=== PATIENT | female | born 1940 | race Caucasian/White ===

== ENCOUNTER 2022-12-15 13:50 | Outpatient (REF) | payer OTHER, SELFPAY ==
[2022-12-15 16:29] LABS: MANUAL DIFF FLAG NO
[2022-12-15 16:33] LABS: Basophils Absolute Auto 0.1 X10*3/uL (0.0-0.2); Basophils Percent Auto 0.7 % (0-2); Eosinophils Absolute Auto 0.3 X10*3/uL (0.0-0.4); Eosinophils Percent Auto 4.6 % (0-4); Hematocrit 40.7 % (37.0-47.0); Imm Gran Abs Auto 0.08 X10*3/uL (0.00-0.03); Imm Gran Pct Auto 1.2 % (0.0-0.4); Lymphocytes Absolute Auto 1.5 X10*3/uL (1.2-4.9); Lymphocytes Percent Auto 21.7 % (20-40); Mean Corpuscular HGB Conc 34.4 g/dl (31.0-35.0); Mean Corpuscular Hemoglobin 31.3 pg (27.0-33.0); Mean Corpuscular Volume 91.1 fL (80.0-98.0); Mean Platelet Volume 9.3 fL (9.4-12.3); Monocytes Absolute Auto 0.8 X10*3/uL (0.1-1.2); Monocytes Percent Auto 12.5 % (2-11); Neutrophils Percent Auto 59.3 % (45-73); Platelet Count 301 X10*3/uL (160-400); Red Blood Count 4.47 X10*6/uL (4.20-5.50); Red Cell Distribution Width 12.9 % (11.0-16.0); White Blood Count 6.7 X10*3/uL (4.8-10.8)
[2022-12-15 16:43] LABS: Estimated Average Glucose 146 mg/dL; Hemoglobin A1c % 6.7 %
[2022-12-15 16:54] LABS: Alanine Aminotransferase 26 U/L (0-31); Albumin Level 4.1 g/dL (3.5-5.0); Alkaline Phosphatase 76 U/L (39-117); Anion Gap 12 (12-20); Aspartate Amino Transferase 28 U/L (5-31); Bilirubin Total 0.4 mg/dL (0.0-1.0); Blood Urea Nitrogen 10 mg/dL (9-16); Calcium 9.5 mg/dL (8.4-10.2); Carbon Dioxide 29 mmol/L (22-29); Chloride 98 mmol/L (96-108); Estimated Glomerular Filt Rate > 60; Glucose Random 130 mg/dL (60-115); Potassium 4.5 mmol/L (3.3-5.1); Sodium 134 mmol/L (135-145); Total Protein 6.8 g/dL (6.5-8.0)
[2022-12-15 17:09] LABS: TSH reflex Free T4 1.47 uIU/mL (0.32-4.0)
[2022-12-15 18:11] LABS: Creatinine Urine 15.02 mg/dL; Microalbumin Urine < 5.0 mg/L
[2022-12-16 17:13] LABS: LDL Cholesterol Direct 120 mg/dL (<100)
== END 2022-12-15 13:51 | disposition home or self-care (01) ==
LOC: HO.HMGCLDS 13:50
PROVIDERS: PCP Internal Medicine; Visit Provider Internal Medicine
DX: E03.9 Hypothyroidism, unspecified (principal); E11.40 Type 2 diabetes mellitus with diabetic neuropathy, unspecified; E66.01 Morbid (severe) obesity due to excess calories; E78.9 Disorder of lipoprotein metabolism, unspecified; I10 Essential (primary) hypertension; Z76.89 Persons encountering health services in other specified circumstances; Z99.89 Dependence on other enabling machines and devices
CPT/HCPCS: 36415; 80053; 82043; 83036; 83721; 84443; 85025

== ENCOUNTER 2023-03-08 10:00 | Outpatient (RCR) | payer OTHER, SELFPAY ==
--- NOTE | 2023-02-15 13:44 | MHC.PT.EP ---
[facility] [place] [facility] [place] [facility] [place] Office [address] [phone] F: [phone] F: [phone] F: [phone] F: [phone] Physical Therapy Plan of Care Date of Evaluation: Date of Surgery: n/a Diagnosis: B leg weakness Assessment: Patient is a 83 year old female presenting to PT with complaints B leg weakness. Pt reports onset of pain began 10 years ago due to insidious onset. She presents today with impairments in LE strength, balance, gait mechanics, endurance. Pt's current occupation is none, with baseline physical activities including ambulating, ADLs. Pt expresses prison goal of improving strength, and is motivated to work towards this in PT. Clinical presentation today is most consistent with signs and sx associated with LE weakness and pt will benefit from skilled PT 1 week x 4 weeks to address the following problems and impairments noted upon evaluation: LE strength, balance, gait mechanics, endurance. These problems limit the patient with the following functional activities: ambulating, ADLs. The prescribed treatment plan of care is medically necessary. Co-morbidities of DM, HTN were identified and taken into considerations of plan of care. Pt was educated on HEP, role of PT, prognosis, POC. Frequency and Duration: The patient will be seen 1 x week x 4 weeks Short Term Goals: Pt will demonstrate improved LE MMT strength to at least 4/5 in 2 weeks for improved strength. Pt will demonstrate ability to stand NBOS with min sway in 2 weeks. Pt will be able to perform STS without UE support in 2 weeks. Senior Care Goals: Pt will demonstrate improved LEFI score by 9 points in 4 weeks for improved functional mobility. Pt will demonstrate ability to perform 5 STS during 30 sec chair stand test in 4 weeks for improved endurance. Treatment Plan: Modalities to reduce pain, spasms and effusion. Manual therapy to restore motion and function. Therapeutic exercise to improve strength and flexibility. Neuromuscular re-education for posture and balance. Therapeutic activities to return to functional activities of daily living. Electronically signed by: Martina Moise, PT, DPT, ATC Please sign and return to therapist. Thank you for your referral.
--- NOTE | 2023-03-08 10:51 | MHC.PT.DC ---
[facility] Office [place] Office [place] Office [address] Dara Rodriguez [address] [phone] F: [phone] F: [phone] F: [phone] F: [phone] Physical Therapy Discharge Report Diagnosis: B leg weakness Date of Surgery: n/a Date of Evaluation: 02/15/23 Date of Discharge: 03/08/23 Treatments to Date: 4 Cancellations to Date: 0 No Shows to Date: 0 Discharge Status: Improved Function Independent with HEP Discharge Summary: 03/08/2023: Pt has made some gains since beginning PT and has been working on her HEP at home. We discussed that her arthritis pain will be something she needs to constantly manage so continuing her HEP will be beneficial for her. At this point we have maximized benefits of PT and skilled PT is no longer indicated at this time. Pt in agreement with d/c today. Electronically signed by: Martina Moise, PT, DPT, ATC Please sign and return to therapist. Thank you for your referral.
== END 2023-03-08 10:55 | disposition home or self-care (01) ==
LOC: HO.PTCHIC 10:00
PROVIDERS: PCP Internal Medicine; Visit Provider Internal Medicine
DX: R29.898 Other symptoms and signs involving the musculoskeletal system (principal)
CPT/HCPCS: 97110; 97161; 97530

== ENCOUNTER → 2023-04-18 10:38 | Outpatient (BNVA) | payer OTHER, SELFPAY | PROVIDERS: PCP Internal Medicine; Visit Provider Physical Medicine & Rehabilitation ==

== ENCOUNTER 2023-04-25 11:26 | Outpatient (AMB) | payer OTHER, SELFPAY ==
[2023-04-25 11:54] VITALS: BMI 35.4
--- NOTE | 2023-04-25 11:54 | MHC.OFFVIS ---
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 States both hands are as bad. States symptoms started more than 3 years ago and has worsen. States she has had injections for CTS, last injection was about 1 yr ago. Patient reports injection last about 2 months. She also wears braces at night time. Patient would like to discuss injections vs surgery. No EMG done for her upper extremity. Senior Process Engineer Required: Yes Senior Process Engineer Name: Sarah Quintanilla Allergies No Known Allergies Allergy (Verified 03/09/23 12:29) Medication List - Last Reconciled 04/25/23 by Diana Hagen MD acetaminophen ER (Tylenol 8 Hour) 650 mg PO Q12H amlodipine 5 mg PO DAILY aspirin 81 mg PO DAILY blood sugar diagnostic ([employer] Verio test strips) Once a day blood-glucose meter ([employer] Verio Flex Meter) Once a day calcium citrate-vitamin D3 315 mg-5 mcg (200 unit) 1 tab PO DAILY denosumab (Prolia) 60 mg subcut [id number] diclofenac sodium 1% (Arthritis Pain (diclofenac)) 2 grams topical QID 30 days ezetimibe 10 mg PO DAILY lancets ([employer] Delica Plus Lancet) qd levothyroxine 50 mcg PO DAILY losartan 100 mg PO DAILY metoprolol succinate ER 25 mg PO DAILY omeprazole magnesium 20 mg PO DAILY pregabalin (Lyrica) 50 mg PO DAILY pregabalin 50 mg PO TID 30 days sitagliptin phosphate (Januvia) 50 mg PO DAILY sitagliptin phosphate (Januvia) 25 mg PO DAILY HPI HPI Comments History of Present Illness Details History of DM PN, follows with [facility]. Referred by PCP. Maintained on Lyrica for PN. Reports no sensation on both legs, and also mentions hip and back pain. 3 years of hand pain and numbness, getting worse. 1st-3rd digit numbness, bilateral. drops things/ weakness. Also has some neck pain. Describes nerve pain similar to her leg neuropathy. Blood sugars around 140s. HbA1c around 7 per patient. On Januvia. Treatment done so far: Tylenol, Lyrica TID therapy - none yet uses wrist splint at night injection - Dr. Ocampo bilateral CTS, 2 years ago, worked 2 months only No EMG on BUE yet. surgery - none for CTS [facility] Social History Housing: Apartment Patient Tobacco Use Status: Never used Tobacco e-Cigarette/Vaping Use: Never Used Current occupational status: unemployed Cognitive needs: No Hearing needs: No Vision needs: Yes Review of Systems Const All systems reviewed & are unremarkable except as noted in HPI and below Physical Exam Vital Signs: BMI result Body Mass Index 35.4 Constitutional: Patient appears to be in no acute distress, well nourished and well developed. MSK: Inspection reveals appropriate head and neck positioning. [No] pain with palpation over the neck musculature. Cervical ROM was [full]. Spurling's sign [negative]. [Bilateral] shoulder ROM [WNL]. [No] ligamentous laxity or crepitance. [No] increased effusion. Hawkin's test is [negative]. [No] joint effusion noted. [No] deformity noted. [No intrinsic hand weakness noted]. Patient points to APB as thinning. Liliam test [negative]. Carpal compression test positive bilateral. Tinel sign positive bilateral wrist. Strength is [5/5 in all muscle groups tested]. No increased tone noted. Neurological: Neurologic examination of the upper and lower extremities was nonfocal with intact sensation, muscle stretch reflexes and without focal motor deficits [ ]. Rey?s [negative bilaterally]. Results Reviewed Results Reviewed: I reviewed records from the following: [facility] PCP Assessment & Plan Assessment & Plan (1) Carpal tunnel syndrome: Code(s): G56.00 - Carpal tunnel syndrome, unspecified upper limb (2) Diabetic neuropathy: Code(s): E11.40 - Type 2 diabetes mellitus with diabetic neuropathy, unspecified Plan Chronic worsening symptoms for Carpal Tunnel Syndrome bilateral. With history of diabetic neuropathy affecting lower extremities. Continue to wear wrist splints at specially at night. We will schedule for EMG bilateral upper extremities. Past injections have not worked for long time and more painful. She may consider surgery after the EMG is done. Assessment and plan discussed with patent, and patient was agreeable. All questions were answered thoroughly. Follow-up after EMG. She would also like another appointment to evaluate for left knee pain. Orders: Orders NE nerve conduction velocity Today E11.40 - Type 2 diabetes mellitus with diabetic neuropathy, unspecified, G56.00 - Carpal tunnel syndrome, unspecified upper limb Coding Level of Care Code New Pt Level 4 (05549) Diagnoses Carpal tunnel syndrome G56.00 Diabetic neuropathy E11.40
== END 2023-04-25 12:29 | disposition home or self-care (01) ==
PROVIDERS: PCP Internal Medicine; Visit Provider Physical Medicine & Rehabilitation
DX: G56.00 Carpal tunnel syndrome, unspecified upper limb (principal); E11.40 Type 2 diabetes mellitus with diabetic neuropathy, unspecified
CPT/HCPCS: 99204

== ENCOUNTER → 2023-04-25 11:26 | Outpatient (BNVA) | payer OTHER, SELFPAY | PROVIDERS: PCP Internal Medicine; Visit Provider Physical Medicine & Rehabilitation | DX: G56.00 Carpal tunnel syndrome, unspecified upper limb (principal); E11.40 Type 2 diabetes mellitus with diabetic neuropathy, unspecified | CPT/HCPCS: 99202 ==

== ENCOUNTER 2023-05-02 13:10 | Outpatient (REF) | payer OTHER, SELFPAY ==
--- NOTE | 2023-05-02 13:14 | EMG_ITS ---
Chief complaint: Bilateral hand numbness, I saw patient in Orthopedics, see full note Reason for referral: Evaluate for Carpal Tunnel Syndrome versus neuropathy Procedure done: Bilateral upper extremities NCS/EMG Precautions and/or limitations: None The limb temperature was monitored continuously and remained between 32-36 degrees C during the performance of the NCS. Nerve Conduction Studies Anti Sensory Summary Table ?Stim Site NR Onset (ms) Norm Onset (ms) Peak (ms) Norm Peak (ms) O-P Amp (?V) Norm O-P Amp Site1 Site2 Delta-0 (ms) Dist (cm) Gunnar (m/s) Norm Gunnar (m/s) Left Median Anti Sensory (2nd Digit) Wrist NR <3.6 >10 Wrist 2nd Digit 14.0 Right Median Anti Sensory (2nd Digit) Wrist NR <3.6 >10 Wrist 2nd Digit 14.0 Right Radial Anti Sensory (Thumb) Forearm ? 1.6 2.7 <3.1 29.5 Forearm Thumb 1.6 0.0 Left Ulnar Anti Sensory (5th Digit) Wrist ? 2.9 3.7 <3.7 18.9 >15.0 Wrist 5th Digit 2.9 14.0 48 Right Ulnar Anti Sensory (5th Digit) Wrist ? 2.3 3.5 <3.7 13.7 >15.0 Wrist 5th Digit 2.3 14.0 61 Motor Summary Table ?Stim Site NR Onset (ms) Norm Onset (ms) O-P Amp (mV) Norm O-P Amp iAmp (mV) Amp (1st) (%) Site1 Site2 Delta-0 (ms) Dist (cm) Gunnar (m/s) Norm Gunnar (m/s) Left Median Motor (Abd Poll Brev) Wrist ? 3.4 <3.9 0.4 >4.5 0.3 100.0 Elbow Wrist 0.0 >45 Elbow NR Right Median Motor (Abd Poll Brev) Wrist ? 4.7 <3.9 0.5 >4.5 0.6 100.0 Elbow Wrist 0.0 >45 Elbow NR Left Ulnar Motor (Abd Dig Minimi) Wrist ? 3.4 <3.0 3.9 >5 5.8 100.0 B Elbow Wrist 3.3 16.5 50 >45 B Elbow ? 6.7 3.3 5.0 84.6 A Elbow B Elbow 1.6 10.0 62 >45 A Elbow ? 8.3 3.2 4.6 82.1 Right Ulnar Motor (Abd Dig Minimi) Wrist ? 3.0 <3.0 6.1 >5 8.7 100.0 B Elbow Wrist 3.4 18.0 53 >45 B Elbow ? 6.4 5.7 8.2 93.4 A Elbow B Elbow 1.3 10.0 77 >45 A Elbow ? 7.7 5.7 8.2 93.4 EMG ?Side Muscle Nerve Root Ins Act Fibs Psw Amp Dur Poly Recrt Int Pat Comment Right 1stDorInt Ulnar C8-T1 Nml Nml Nml Nml Nml 0 Nml Complete Right FlexCarRad Median C6-7 Nml Nml Nml Nml Nml 0 Nml Complete Right Biceps Musculocut C5-6 Nml Nml Nml Nml Nml 0 Nml Complete Right Triceps Radial C6-7-8 Nml Nml Nml Nml Nml 0 Nml Complete Right Deltoid Axillary C5-6 Nml Nml Nml Nml Nml 0 Nml Complete Left 1stDorInt Ulnar C8-T1 Nml Nml Nml Nml Nml 0 Nml Complete Left FlexCarRad Median C6-7 Nml Nml Nml Nml Nml 0 Nml Complete Left Biceps Musculocut C5-6 Nml Nml Nml Nml Nml 0 Nml Complete Left Triceps Radial C6-7-8 Nml Nml Nml Nml Nml 0 Nml Complete Left Deltoid Axillary C5-6 Nml Nml Nml Nml Nml 0 Nml Complete FINDINGS: Bilateral median motor nerves showed small amplitude distally and absent proximally. Left ulnar motor nerve showed prolonged distal latency, small amplitude and normal conduction velocity. Bilateral median sensory nerves showed absent response. All other nerves tested were within normal. Concentric needle EMG was performed in selected muscles of the bilateral upper extremities. Study did not reveal signs of electric abnormalities as shown in the table below. IMPRESSION: 1. This is an abnormal study. 2. There is electrodiagnostic evidence for bilateral moderate-severe median neuropathy at the wrists, consistent with carpal tunnel syndrome. 3. There is no electrodiagnostic evidence for brachial plexopathy, or cervical radiculopathy. CLINICAL COMMENT: Possible neuropathy affecting left ulnar nerve distally but without conduction block across the elbow. Patient has history of diabetic neuropathy Thank you for your kind referral.. Diana Hagen MD, [place] Board Certified, [place] Board of [employer] and Rehabilitation (ABPMR) Board Certified, [place] Board of Electrodiagnostic Medicine (ABEM) MTDD
== END 2023-05-02 13:11 | disposition home or self-care (01) ==
LOC: HO.NEURO 13:10
PROVIDERS: PCP Internal Medicine; Visit Provider Physical Medicine & Rehabilitation
DX: G56.00 Carpal tunnel syndrome, unspecified upper limb (principal); E11.40 Type 2 diabetes mellitus with diabetic neuropathy, unspecified
CPT/HCPCS: 95886; 95911

== ENCOUNTER 2023-05-16 10:42 | Outpatient (REF) | payer OTHER, SELFPAY ==
--- NOTE | ~2023-05-16 | XR_ITS ---
EXAMINATION: XR KNEE, LEFT CLINICAL INFORMATION: Primary osteoarthritis. Left knee pain. COMPARISON: None available. TECHNIQUE: Three views of the left knee. FINDINGS: There is moderate loss of tricompartment joint space with periarticular spurring along the medial and patellofemoral compartments. No acute fracture, dislocation or loose body seen. No joint effusion. The soft tissues are normal. XR/XR knee LT 3V IMPRESSION: Moderate degenerative changes tricompartment left knee. No visible acute fracture or dislocation seen.
== END 2023-05-16 10:43 | disposition home or self-care (01) ==
LOC: HO.HOSX 10:42
PROVIDERS: PCP Internal Medicine; Visit Provider Physical Medicine & Rehabilitation
DX: M17.12 Unilateral primary osteoarthritis, left knee (principal)
CPT/HCPCS: 73562

== ENCOUNTER 2023-05-16 10:42 | Outpatient (AMB) | payer OTHER, SELFPAY ==
--- NOTE | 2023-05-16 10:46 | A.OFFVIS_ITS ---
Intake Vital Signs 05/16/23 10:51 Height 5 ft 3 in Weight 200 lb BMI 35.4 Intake Visit Reasons: New prob- B/L knee pain and emg review Intake Note: Leona is a 83 year old right hand dominant female who presents today for her EMG review for her bilateral hand pain. Hx of injections with 2-3 months of relief. Patient is also having complaints of pain on both of her knees. She states that her pain gets so pain that she feels her feet numb. Patient reports that her left knee is worse than the right. She states that her pain is worse when walkin g. Allergies No Known Allergies Allergy (Verified 05/16/23 10:51) Medication List - Last Reconciled 05/16/23 by Diana Hagen MD acetaminophen ER (Tylenol 8 Hour) 650 mg PO Q12H amlodipine 5 mg PO DAILY aspirin 81 mg PO DAILY blood sugar diagnostic ([employer] Verio test strips) Once a day blood-glucose meter ([employer] Verio Flex Meter) Once a day calcium citrate-vitamin D3 315 mg-5 mcg (200 unit) 1 tab PO DAILY denosumab (Prolia) 60 mg subcut [id number] diclofenac sodium 1% (Arthritis Pain (diclofenac)) 2 grams topical QID 30 days ezetimibe 10 mg PO DAILY lancets ([email or web address] Delica Plus Lancet) qd levothyroxine 50 mcg PO DAILY losartan 100 mg PO DAILY metoprolol succinate ER 25 mg PO DAILY omeprazole magnesium 20 mg PO DAILY pregabalin (Lyrica) 50 mg PO DAILY pregabalin 50 mg PO TID 30 days sitagliptin phosphate (Januvia) 50 mg PO DAILY sitagliptin phosphate (Januvia) 25 mg PO DAILY HPI HPI Comments History of Present Illness Details History of DM PN, follows with [facility]. Initially referred by PCP for hand pain. Maintained on Lyrica for PN. Reports no sensation on both legs, and also mentions hip and back pain. 3 years of hand pain and numbness, getting worse. 1st-3rd digit numbness, bilateral. drops things/ weakness. Also has some neck pain. Describes nerve pain similar to her leg neuropathy. We did EMG, results below. Blood sugars around [140s]. HbA1c around 7 per patient. On Januvia. injection - Dr. Ocampo bilateral CTS, 2 years ago, worked 2 months only. She tells me today that she had injection for both wrists 4 months ago pain. She is here today also for left knee pain. She also talks about lower back pain that radiates into left knee. No recent imaging of knees. She tells me that she had injection for both knees 5 months ago. [facility] Medical History (Updated 05/16/23 @ 11:03 by Diana Hagen MD) Left knee DJD Social History Housing: Apartment Patient Tobacco Use Status: Never used Tobacco e-Cigarette/Vaping Use: Never Used Current occupational status: unemployed Cognitive needs: No Hearing needs: No Vision needs: Yes Physical Exam Vital Signs: BMI result Body Mass Index 35.4 Constitutional: Patient appears to be in no acute distress, well nourished and well developed. MSK: Uses walker. Left knee is not red or warm or swollen. There is tenderness more on left lateral joint line. Positive pain with both varus and valgus stress. No sense of instability. No calf tenderness. Results Reviewed Results Reviewed: Left knee x-ray done today, independently reviewed, films showed decreased joint space especially on lateral and infrapatellar. Spurs noted. EMG done by me 05/02/23 BUE: IMPRESSION: 1. This is an abnormal study. 2. There is electrodiagnostic evidence for bilateral moderate-severe median n europathy at the wrists, consistent with carpal tunnel syndrome. 3. There is no electrodiagnostic evidence for brachial plexopathy, or cervical radiculopathy. CLINICAL COMMENT: Possible neuropathy affecting left ulnar nerve distally but without conduction block across the elbow. Patient has history of diabetic neuropathy I reviewed records from the following: [facility] PCP Assessment & Plan Assessment & Plan (1) Left knee DJD: Code(s): M17.12 - Unilateral primary osteoarthritis, left knee Plan: Chronic left knee pain. X-rays done today which shows decreased joint spaces. (2) Carpal tunnel syndrome: Code(s): G56.00 - Carpal tunnel syndrome, unspecified upper limb Plan: At this point she is not considering surgery. She says that she has poorly controlled diabetes and does not heal well from wounds. But she tells me that steroid injections do not usually affect her blood sugars. Her last Carpal Tunnel Syndrome injection was 4 months ago. I discussed that I am conservative in terms of Carpal Tunnel Syndrome injections and would only do it every 6 months. Plan After further discussion, we decided that it is best she continues to follow-up with her technical sales support specialist Dr. Ocampo for Carpal Tunnel Syndrome any injections. She scheduled to see Dr. Ocampo at the end of the month. She would like to be further evaluated for lower back pain. We will schedule another follow-up and possibly do imaging at that time. Assessment and plan discussed with patent, and patient was agreeable. All questions were answered thoroughly. Orders: Orders XR knee LT 3V Today M17.12 - Unilateral primary osteoarthritis, left knee Coding Level of Care Code Est Pt Level 4 (52305) Diagnoses Left knee DJD M17.12 Carpal tunnel syndrome G56.00
[2023-05-16 10:51] VITALS: BMI 35.4
== END 2023-05-16 12:38 | disposition home or self-care (01) ==
PROVIDERS: PCP Internal Medicine; Visit Provider Physical Medicine & Rehabilitation
DX: M17.12 Unilateral primary osteoarthritis, left knee (principal); G56.00 Carpal tunnel syndrome, unspecified upper limb
CPT/HCPCS: 99213

== ENCOUNTER 2023-06-08 11:36 | Outpatient (AMB) | payer OTHER, SELFPAY ==
[2023-06-08 11:38] VITALS: BP 162/78; PULSE 76; O2SAT 97; BMI 34.9
--- NOTE | 2023-06-08 11:38 | MHC.PC.OV ---
Vital Signs 06/08/23 11:38 06/08/23 12:06 Height 5 ft 3 in Weight 197 lb BMI 34.9 BP 162/78 H 140/80 H Blood Pressure Location Lt brachial Position Sitting Pulse 76 Pulse Source Pulse Oximeter Pulse Oximetry (%) 97 Oxygen Delivery Method Room Air Intake Visit Reasons: 3 month f/u Allergies No Known Allergies Allergy (Verified 06/08/23 11:38) Medication List - Last Reconciled 06/08/23 by Debbie Begum MD acetaminophen ER (Tylenol 8 Hour) 650 mg PO Q12H amlodipine 5 mg PO DAILY aspirin 81 mg PO DAILY blood sugar diagnostic ([employer] Verio test strips) Once a day blood-glucose meter ([employer] Verio Flex Meter) Once a day calcium citrate-vitamin D3 315 mg-5 mcg (200 unit) 1 tab PO DAILY denosumab (Prolia) 60 mg subcut [id number] diclofenac sodium 1% (Arthritis Pain (diclofenac)) 2 grams topical QID 30 days ezetimibe 10 mg PO DAILY lancets ([employer] Delica Plus Lancet) qd levothyroxine 50 mcg PO DAILY losartan 100 mg PO DAILY metoprolol succinate ER 25 mg PO DAILY omeprazole magnesium 20 mg PO DAILY pregabalin 50 mg PO TID 30 days pregabalin (Lyrica) 50 mg PO DAILY sitagliptin phosphate (Januvia) 50 mg PO DAILY sitagliptin phosphate (Januvia) 25 mg PO DAILY Tobacco use date assessed: 06/08/23 Fall risk assessment: No Falls in past year Last assessed Fall Risk: 06/08/23 Dental Screening Dental Screen Date: 06/08/23 Did you have a dental visit in the last 12 months?: Yes Did you have a dental problem in the last 6 months where you did not have access to dental care?: No Was dental information given to patient?: Patient has dentist HPI 3 month f/u HPI Details Patient is 83-year-old female who speaks only Austrian came in today for her regular follow-up appointment Patient speaks only Austrian information retrieved with that of a staff member Patient is morbidly obese with diabetic neuropathy using walker to ambulate. She is on Lyrica 50 mg t.i.d., because of diabetic neuropathy, she continued to complain of numbness and pain in her feet Diabetes mellitus continue Januvia hemoglobin A1c is well controlled, patient was supposed to have labs done before this visit but she forgot she will have it done after the visit Patient is no longer having mammogram No longer having colonoscopies no longer seeing OBGYN Arthritic pain managed with diclofenac sodium arthritic rub. She also have a hypothyroidism and is taking levothyroxine 50 mcg , TSH within normal limit Blood pressure is slightly elevated today: Continue losartan 50 mg patient is tolerating medication she is also on metoprolol 25 mg daily. Lipid disorder: Managed with Zetia 10 mg and diet GERD is stable with omeprazole 20 mg daily Patient sees Dr. Ocampo for Prolia injection every 3 month [facility] Medical History Left knee DJD Social History Housing: Apartment Patient Tobacco Use Status: Never used Tobacco e-Cigarette/Vaping Use: Never Used Current occupational status: unemployed Cognitive needs: No Hearing needs: No Vision needs: Yes Questionnaire Thrive Questionnaire Date Thrive assessed: 12/15/22 AUDIT C Alcohol Use Questionnaire (AUDIT-C) 1. How often do you have a drink containing alcohol?: Never 3. How often do you have six or more drinks on one occasion?: Never Total Score: 0 SAMI-7 AMB Questionnaire SAMI-7 Date ASMI - 7 assessed: 12/15/22 Source: Developed by Drs. Gm Shaikh, Lolita Alba, Kareem Holguin and colleagues, with an educational neela from [employer]. Review of Systems Const Denies chills and Denies fever(s) ENT Denies epistaxis and Denies nasal discharge Card Denies chest pain Resp Denies chest congestion, Denies cough and Denies hemoptysis GI Denies diarrhea and Denies nausea Skin/Breast Denies rash Neuro Reports no additional complaints Psych Reports no additional complaints Endo Reports no additional complaints Physical exam (Primary Care) Vital Signs: Last Vital Signs Pulse 76 06/08/23 11:38 BP 162/78 H 06/08/23 11:38 Pulse Ox 97 06/08/23 11:38 Oxygen Delivery Method Room Air 06/08/23 11:38 BMI result Body Mass Index 34.9 Tobacco/Smoking Status: Tobacco use Status Tobacco use date assessed 06/08/23 06/08/23 11:38 Patient Tobacco Use Status Never used Tobacco 06/08/23 11:38 e-Cigarette/Vaping Use Never Used 06/08/23 11:38 Thrive Assessment: Date of Thrive Assessment Date Thrive assessed 12/15/22 06/08/23 11:38 Const General: cooperative, comfortable and no acute distress Orientation/consciousness: patient oriented x3 HENMT Head: Yes normocephalic Eyes General: appearance normal, both eyes and all related structures Neck Neck: Yes supple Resp Effort & Inspection: normal respiratory effort, no cough and no stridor Cardio Rhythm: regular rhythm Heart sounds: S1 normal heart sound present and S2 normal heart sound present Skin General skin exam: turgor normal Neuro General: patient oriented x3, tone normal and moves all extremities Extrem Right lower extremity: no edema Left lower extremity: no edema Assessment and Plan Assessment & Plan (1) Diabetes mellitus: Code(s): E11.9 - Type 2 diabetes mellitus without complications Qualifiers: Diabetes mellitus complication detail: with polyneuropathy Diabetes mellitus complication status: with neurologic complications Diabetes mellitus ocean transportation intermediary insulin use: without longterm use Diabetes mellitus type: type 2 Qualified Code(s): E11.42 - Type 2 diabetes mellitus with diabetic polyneuropathy (2) Diabetic neuropathy: Code(s): E11.40 - Type 2 diabetes mellitus with diabetic neuropathy, unspecified Qualifiers: Diabetes mellitus complication detail: diabetic polyneuropathy Diabetes mellitus type: type 2 Qualified Code(s): E11.42 - Type 2 diabetes mellitus with diabetic polyneuropathy (3) Hypertension, essential: Code(s): I10 - Essential (primary) hypertension (4) Lipid disorder: Code(s): E78.9 - Disorder of lipoprotein metabolism, unspecified (5) Hypothyroidism: Code(s): E03.9 - Hypothyroidism, unspecified Qualifiers: Hypothyroidism type: unspecified Qualified Code(s): E03.9 - Hypothyroidism, unspecified (6) Morbid obesity: Code(s): E66.01 - Morbid (severe) obesity due to excess calories (7) Bilateral leg weakness: Code(s): R29.898 - Other symptoms and signs involving the musculoskeletal system (8) Uses roller walker: Code(s): Z99.89 - Dependence on other enabling machines and devices Plan Patient is 83-year-old female who speaks only Austrian came in today for her regular follow-up appointment Patient speaks only Austrian information retrieved with that of a staff member Patient is morbidly obese with diabetic neuropathy using walker to ambulate. She is on Lyrica 50 mg t.i.d., because of diabetic neuropathy, she continued to complain of numbness and pain in her feet Diabetes mellitus continue Januvia hemoglobin A1c is well controlled, patient was supposed to have labs done before this visit but she forgot she will have it done after the visit Patient is no longer having mammogram No longer having colonoscopies no longer seeing OBGYN Arthritic pain managed with diclofenac sodium arthritic rub. She also have a hypothyroidism and is taking levothyroxine 50 mcg , TSH within normal limit Blood pressure is slightly elevated today: Continue losartan 50 mg patient is tolerating medication she is also on metoprolol 25 mg daily. Lipid disorder: Managed with Zetia 10 mg and diet GERD is stable with omeprazole 20 mg daily Patient sees Dr. Ocampo for Prolia injection every 3 month Orders: Orders Complete Blood Count Auto Diff 3 Months E03.9 - Hypothyroidism, unspecified, E11.40 - Type 2 diabetes mellitus with diabetic neuropathy, unspecified, E11.9 - Type 2 diabetes mellitus without complications, E66.01 - Morbid (severe) obesity due to excess calories, E78.9 - Disorder of lipoprotein metabolism, unspecified, I10 - Essential (primary) hypertension, R29.898 - Other symptoms and signs involving the musculoskeletal system Comprehensive Met. Panel 3 Months E03.9 - Hypothyroidism, unspecified, E11.40 - Type 2 diabetes mellitus with diabetic neuropathy, unspecified, E11.9 - Type 2 diabetes mellitus without complications, E66.01 - Morbid (severe) obesity due to excess calories, E78.9 - Disorder of lipoprotein metabolism, unspecified, I10 - Essential (primary) hypertension, R29.898 - Other symptoms and signs involving the musculoskeletal system TSH reflex Free T4 3 Months E03.9 - Hypothyroidism, unspecified Hemoglobin A1c 3 Months E03.9 - Hypothyroidism, unspecified, E11.40 - Type 2 diabetes mellitus with diabetic neuropathy, unspecified, E11.9 - Type 2 diabetes mellitus without complications, E66.01 - Morbid (severe) obesity due to excess calories, E78.9 - Disorder of lipoprotein metabolism, unspecified, I10 - Essential (primary) hypertension, R29.898 - Other symptoms and signs involving the musculoskeletal system Microalbumin, Random (w Creat) 3 Months E03.9 - Hypothyroidism, unspecified, E11.40 - Type 2 diabetes mellitus with diabetic neuropathy, unspecified, E11.9 - Type 2 diabetes mellitus without complications, E66.01 - Morbid (severe) obesity due to excess calories, E78.9 - Disorder of lipoprotein metabolism, unspecified, I10 - Essential (primary) hypertension, R29.898 - Other symptoms and signs involving the musculoskeletal system Referrals Dermatology Referral Z12.83 - Encounter for screening for malignant neoplasm of skin Medications: New losartan 100 mg PO DAILY 90 tabs 1RF pregabalin (Lyrica) 50 mg PO DAILY 90 caps 0RF aspirin 81 mg PO DAILY 90 caps 3RF Changed From pregabalin (Lyrica) 50 mg PO DAILY 90 caps 0RF To pregabalin (Lyrica) 50 mg PO Q8H 90 days 270 caps 0RF Refilled ezetimibe 10 mg PO DAILY 90 tabs 0RF pregabalin 50 mg PO TID 30 days 90 caps 0RF levothyroxine 50 mcg PO DAILY 90 tabs 1RF Coding Level of Care Code Est Pt Level 4 (09357) Diagnoses Type 2 diabetes mellitus with diabetic polyneuropathy, without long-term current use of insulin E11.42 Diabetes mellitus complication detail: with polyneuropathy Diabetes mellitus complication status: with neurologic complications Diabetes mellitus longterm insulin use: without ocean transportation intermediary use Diabetes mellitus type: type 2 Diabetic polyneuropathy associated with type 2 diabetes mellitus E11.42 Diabetes mellitus complication detail: diabetic polyneuropathy Diabetes mellitus type: type 2 Hypertension, essential I10 Lipid disorder E78.9 Hypothyroidism, unspecified type E03.9 Hypothyroidism type: unspecified Morbid obesity E66.01 Bilateral leg weakness R29.898 Uses roller walker Z99.89
[2023-06-08 12:06] VITALS: BP 140/80
== END 2023-06-08 12:05 | disposition home or self-care (01) ==
PROVIDERS: PCP Internal Medicine; Visit Provider Internal Medicine
DX: E11.42 Type 2 diabetes mellitus with diabetic polyneuropathy (principal); E66.01 Morbid (severe) obesity due to excess calories; Z68.34 Body mass index [BMI] 34.0-34.9, adult; I10 Essential (primary) hypertension; E78.9 Disorder of lipoprotein metabolism, unspecified; E03.9 Hypothyroidism, unspecified; R29.898 Other symptoms and signs involving the musculoskeletal system; Z99.89 Dependence on other enabling machines and devices
CPT/HCPCS: 99214

== ENCOUNTER 2023-06-08 12:06 | Outpatient (REF) | payer OTHER, SELFPAY ==
[2023-06-08 13:30] LABS: Estimated Average Glucose 154 mg/dL
[2023-06-08 13:54] LABS: Alanine Aminotransferase 33 U/L (0-31); Albumin Level 4.3 g/dL (3.5-5.0); Alkaline Phosphatase 65 U/L (39-117); Anion Gap 15 (12-20); Aspartate Amino Transferase 36 U/L (5-31); Bilirubin Total 0.5 mg/dL (0.0-1.0); Blood Urea Nitrogen 19 mg/dL (9-16); Calcium 9.5 mg/dL (8.4-10.2); Carbon Dioxide 23 mmol/L (22-29); Chloride 99 mmol/L (96-108); Estimated Glomerular Filt Rate > 60; Glucose Random 119 mg/dL (60-115); Potassium 4.3 mmol/L (3.3-5.1); Sodium 133 mmol/L (135-145); Total Protein 7.3 g/dL (6.5-8.0)
== END 2023-06-08 12:07 | disposition home or self-care (01) ==
LOC: HO.HMGCLDS 12:06
PROVIDERS: PCP Internal Medicine; Visit Provider Internal Medicine
DX: E11.40 Type 2 diabetes mellitus with diabetic neuropathy, unspecified (principal); I10 Essential (primary) hypertension; E78.9 Disorder of lipoprotein metabolism, unspecified; E03.9 Hypothyroidism, unspecified
CPT/HCPCS: 36415; 80053; 83036

== ENCOUNTER 2023-07-18 11:11 | Outpatient (REF) | payer OTHER, SELFPAY ==
--- NOTE | ~2023-07-18 | XR_ITS ---
EXAMINATION: XR HIP, LEFT CLINICAL INFORMATION: Left hip DJD, back pain COMPARISON: None available. TECHNIQUE: Two views of the left hip. FINDINGS: Surgical coils characteristic of hernia repair project over the partially imaged pelvis. Mild degenerative changes with hypertrophic change in the left hip. Alignment preserved. The bones are diffusely demineralized. XR/XR hip LT min 2V IMPRESSION: Mild degenerative changes in the left hip. MRI should be considered for further evaluation if there is concern for fracture or other pathology.
--- NOTE | ~2023-07-18 | XR_ITS ---
EXAMINATION: XR LUMBOSACRAL SPINE CLINICAL INFORMATION: Back pain. Evaluate disc space loss. COMPARISON: None TECHNIQUE: Three views of the lumbosacral spine. FINDINGS: Visualization limited due to body habitus. Surgical clips in the right upper quadrant of the abdomen. Atherosclerotic aortoiliac calcifications. Facet arthritis in the lower lumbar spine. Advanced degenerative changes in the imaged lower thoracic spine. Minimal retrolisthesis of L1 on L2. Multilevel degenerative changes in the lumbar spine with marked loss of disc space height at L2-L3. Grade 1 anterolisthesis of L4 on L5. Moderate degenerative changes with loss of disc space height at L5-S1. Facet arthritis in the lower lumbar spine. XR/XR lumbar spine 2-3V IMPRESSION: Advanced multilevel degenerative changes in the lumbar spine.
== END 2023-07-18 11:12 | disposition home or self-care (01) ==
LOC: HO.HOSX 11:11
PROVIDERS: PCP Internal Medicine; Visit Provider Physical Medicine & Rehabilitation
DX: M54.9 Dorsalgia, unspecified (principal); R10.32 Left lower quadrant pain; M54.42 Lumbago with sciatica, left side; G89.29 Other chronic pain
CPT/HCPCS: 72100; 73502; 99212

== ENCOUNTER 2023-07-18 11:11 | Outpatient (AMB) | payer OTHER, SELFPAY ==
--- NOTE | 2023-07-18 11:37 | A.OFFVIS_ITS ---
Intake Vital Signs 07/18/23 11:44 Height 5 ft 3 in Weight 198 lb BMI 35.1 Intake Visit Reasons: OV-Lower back pain Intake Note: Leona 83 yr old female presents today for her lower back pain. States she has hx of lower back pain for many years. States she is now having groin pain in both side, left is worse than her right. States she has radiating pain from lower back to her legs. Reports she uses diclofenac gel in knees which helps. Also has constant numbness and tingling in bilateral feet. States she has tried P.T (5 sessions) which she felt no difference. [employer] Required: Yes Allergies No Known Allergies Allergy (Verified 07/18/23 11:49) Medication List - Last Reconciled 07/18/23 by Diana Hagen MD acetaminophen ER (Tylenol 8 Hour) 650 mg PO Q12H amlodipine 5 mg PO DAILY aspirin 81 mg PO DAILY blood sugar diagnostic ([employer] Verio test strips) Once a day blood-glucose meter ([employer] Verio Flex Meter) Once a day calcium citrate-vitamin D3 315 mg-5 mcg (200 unit) 1 tab PO DAILY denosumab (Prolia) 60 mg subcut [id number] diclofenac sodium 1% (Arthritis Pain (diclofenac)) 2 grams topical QID 30 days ezetimibe 10 mg PO DAILY lancets ([employer] Delica Plus Lancet) qd lancets ([employer] Lancets) Test blood sugar once a day levothyroxine 50 mcg PO DAILY losartan 100 mg PO DAILY metoprolol succinate ER 25 mg PO DAILY omeprazole magnesium 20 mg PO DAILY pregabalin (Lyrica) 50 mg PO Q8H 90 days pregabalin 50 mg PO TID 30 days sitagliptin phosphate (Januvia) 50 mg PO DAILY sitagliptin phosphate (Januvia) 25 mg PO DAILY HPI HPI Comments History of Present Illness Details Previously seen for other issues such as Carpal Tunnel Syndrome. Here today for back pain. Chronic back pain. No surgery yet. Had injection in [place], years ago, lasted for a bit only. Lower back pain, both sides, left worse, then goes to groin and pelvis. She gets knee injections at [facility]. History of neuropathy on feet, diabetic. Uses a walker. Treatment done so far: tylenol therapy - [facility], less than 6 months ago Injection years ago [facility] Medical History (Updated 07/18/23 @ 12:37 by Diana Hagen MD) Chronic back pain Left knee DJD Social History (Updated 07/18/23 @ 11:51 by Lisa Parisi [facility]) Housing: Apartment Patient Tobacco Use Status: Never used Tobacco e-Cigarette/Vaping Use: Never Used Current occupational status: unemployed Current occupation: rt hand Cognitive needs: No Hearing needs: No Vision needs: Yes Review of Systems Const All systems reviewed & are unremarkable except as noted in HPI and below Physical Exam Vital Signs: BMI result Body Mass Index 35.1 Constitutional: Patient appears to be in no acute distress, well nourished and well developed. MSK: Uses walker. Tender on left SI joint. Tender on left GT. No footdrop. Results Reviewed Results Reviewed: XR/XR knee LT 3V IMPRESSION: Moderate degenerative changes tricompartment left knee. No visible acute fracture or dislocation seen. Assessment & Plan Assessment & Plan (1) Groin pain: Code(s): R10.30 - Lower abdominal pain, unspecified Qualifiers: Laterality: left Qualified Code(s): R10.32 - Left lower quadrant pain (2) Chronic back pain: Code(s): M54.9 - Dorsalgia, unspecified; G89.29 - Other chronic pain Qualifiers: Back pain location: low back pain Back pain laterality: bilateral Sciatica presence: with sciatica Sciatica laterality: sciatica of left side Qualified Code(s): M54.42 - Lumbago with sciatica, left side; G89.29 - Other chronic pain Plan Chronic back pain with SI joint left tender on exam today. Endorsing left groin pain which suggests left hip DJD. Will do lumbar and hip x-rays today. We discussed possibility of lumbar or hip injections, depending on x-ray results. Patient would be eager to proceed. Consider lumbar MRI if x-ray shows disc space narrowing. Assessment and plan discussed with patient, and patient was agreeable. All questions were answered thoroughly. iDana Hagen MD, [place] Board Certified, [place] [employer] and Rehabilitation (ABPMR) Board Certified, [place] Board [employer] Electrodiagnostic [employer] (ABEM) Orders: Orders XR hip LT min 2V Today G89.29 - Other chronic pain, M54.9 - Dorsalgia, unspecified, R10.30 - Lower abdominal pain, unspecified XR lumbar spine 2-3V Today G89.29 - Other chronic pain, M54.9 - Dorsalgia, unspecified, R10.30 - Lower abdominal pain, unspecified Coding Level of Care Code Est Pt Level 4 (32638) Diagnoses Left inguinal pain R10.32 Laterality: left Chronic bilateral low back pain with left-sided sciatica M54.42; G89.29 Back pain location: low back pain Back pain laterality: bilateral Sciatica presence: with sciatica Sciatica laterality: sciatica of left side
[2023-07-18 11:44] VITALS: BMI 35.1
== END 2023-07-18 13:52 | disposition home or self-care (01) ==
PROVIDERS: PCP Internal Medicine; Visit Provider Physical Medicine & Rehabilitation
DX: R10.32 Left lower quadrant pain (principal); M54.42 Lumbago with sciatica, left side; G89.29 Other chronic pain
CPT/HCPCS: 99214

== ENCOUNTER 2023-08-22 10:49 | Outpatient (AMB) | payer OTHER, SELFPAY ==
[2023-08-22 11:08] VITALS: BP 136/61; PULSE 78; RESP 18; O2SAT 96; BMI 34.3
--- NOTE | 2023-08-22 11:08 | MHC.OFFVIS ---
Intake Vital Signs 08/22/23 11:08 Height 5 ft 3 in Weight 193 lb 6 oz BMI 34.3 BP 136/61 Blood Pressure Location Lt brachial Position Sitting Respiration 18 Pulse 78 Pulse Source Pulse Oximeter Pulse Oximetry (%) 96 Oxygen Delivery Method Room Air Intake Visit Reasons: Osteoarthritis of hip, unspecified/# not working Allergies No Known Allergies Allergy (Verified 08/22/23 10:59) HPI HPI Comments History of Present Illness Details Leona is a very pleasant 83-year-old female who presents the office today, accompanied by medical appointment clerk, for evaluation and management her chronic back pain. Patient reports that she has been suffering with this pain for greater than 15 years. States that it is only getting worse as time goes on. She is currently taking Tylenol and Lyrica for pain with minimal relief. Completed physical therapy a couple months ago without improvement of her pain. She states approximately 1 year ago she had epidural steroid injection at [facility] that did not improve her back pain. She has never attempted manual manipulation with chiropractor, acupuncture or massage. Pain is worse with walking and when transitioning from sit to stand. Patient reports radiation of the pain into the buttocks and upper thigh. She denies radiation of the pain past the level of the knee on either side. 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 She is currently under care at the [facility] where she is getting injections for her hands and knees. Most recent injection was more than 1 month ago. Patient denies red flag symptoms including new loss of bowel, bladder or saddle anesthesia. In terms of muscle damage condition is described as pulsing, throbbing, pounding, pinching, cramping, crushing, tiring, exhausting, stabbing, lancinating, tingling and stinging. Pain is negatively impacting patient's ability to perform activities of daily living, care for self and function normally. He she does have a SPORTS MANAGEMENT INTERN to help around the house. Patient has a history of osteoporosis, she is currently being treated with medications including Prolia. Up-to-date on DEXA with next due October of 2023. [facility] Medical History (Updated 08/22/23 @ 12:04 by Marquita Rider APRN, [employer] SUPERVISOR) Chronic back pain Left knee DJD Social History (Updated 07/18/23 @ 11:51 by Lisa Parisi [facility]) Housing: Apartment Patient Tobacco Use Status: Never used Tobacco e-Cigarette/Vaping Use: Never Used Current occupational status: unemployed Current occupation: rt hand Cognitive needs: No Hearing needs: No Vision needs: Yes Review of Systems Const All systems reviewed & are unremarkable except as noted in HPI and below Physical Exam Vital Signs: Last Vital Signs Pulse 78 08/22/23 11:08 Resp 18 08/22/23 11:08 BP 136/61 08/22/23 11:08 Pulse Ox 96 08/22/23 11:08 Oxygen Delivery Method Room Air 08/22/23 11:08 BMI result Body Mass Index 34.3 General: awake, alert, oriented. Answers questions appropriately. Fully engaged in examination. Skin: warm, dry, intact HEENT: Normocephalic. Hearing intact. Cardiac: External chest normal in appearance. Respiratory: No cough, audible wheezing or stridor. Abdomen: without gross distension. MS: No obvious swelling or deformities. Able to transition from sit to stand unassisted. Ambulates with bilaterally normal heel strike and toe off Tender to palpation over midline lumbar vertebrae, lumbar paraspinal muscles Significantly tender to palpation over bilateral posterior superior iliac spine, right greater the left MARTHA positive bilaterally [place] positive bilaterally Thigh thrust positive bilaterally SLR with without dorsiflexion negative bilaterally Facet loading positive bilaterally Neurological: Oriented to person, place, time and situation. Thought process intact. Ambulates with the use a Rollator walker Psychiatric: Appropriate mood and affect. Good judgment and insight. Results Reviewed Results Reviewed: 07/18/23 XR/XR lumbar spine 2-3V FINDINGS: Visualization limited due to body habitus. Surgical clips in the right upper quadrant of the abdomen. Atherosclerotic aortoiliac calcifications. Facet arthritis in the lower lumbar spine. Advanced degenerative changes in the imaged lower thoracic spine. Minimal retrolisthesis of L1 on L2. Multilevel degenerative changes in the lumbar spine with marked loss of disc space height at L2-L3. Grade 1 anterolisthesis of L4 on L5. Moderate degenerative changes with loss of disc space height at L5-S1. Facet arthritis in the lower lumbar spine. IMPRESSION: Advanced multilevel degenerative changes in the lumbar spine. Assessment & Plan Assessment & Plan (1) Diabetic neuropathy: Code(s): E11.40 - Type 2 diabetes mellitus with diabetic neuropathy, unspecified Qualifiers: Diabetes mellitus type: type 2 Diabetes mellitus complication detail: diabetic polyneuropathy Qualified Code(s): E11.42 - Type 2 diabetes mellitus with diabetic polyneuropathy (2) Diabetes mellitus: Code(s): E11.9 - Type 2 diabetes mellitus without complications Qualifiers: Diabetes mellitus type: type 2 Diabetes mellitus jail insulin use: without jail use Diabetes mellitus complication status: with neurologic complications Diabetes mellitus complication detail: with polyneuropathy Qualified Code(s): E11.42 - Type 2 diabetes mellitus with diabetic polyneuropathy (3) Lumbar facet arthropathy: Code(s): M47.816 - Spondylosis without myelopathy or radiculopathy, lumbar region (4) Sacroiliac joint dysfunction of both sides: Code(s): M53.3 - Sacrococcygeal disorders, not elsewhere classified Plan Leona is a very pleasant 83-year-old female who presented to the office today for evaluation management of her chronic lower back pain. History, physical exam and provocative testing consistent with lumbar facet arthropathy, bilateral sacroiliac joint dysfunction and painful diabetic neuropathy bilateral. Patient has exhausted conservative treatment including physical therapy, home exercise program, [id number] medications and prescription medications. Discussed options for treatment including diagnostic interventional testing, steroid injections, peripheral nerve stimulation with Sprint, RFA and more permanent neuromodulation. Informational pamphlets provided. For her peripheral neuropathy will submit prior authorization for topical capsaicin in office application. Patient advised of pre and post expectations. Patient reports sacroiliac joint pain is more bothersome than her midline axial back pain. She would like to address this area with injections 1st. Will schedule for fluoroscopy guided diagnostic bilateral sacroiliac joint injections with local anesthetic. All questions and concerns have been answered and patient agrees with the plan. Follow up after injections and sooner if needed. Coding Level of Care Code New Pt Level 4 (87497) Diagnoses Diabetic polyneuropathy associated with type 2 diabetes mellitus E11.42 Diabetes mellitus type: type 2 Diabetes mellitus complication detail: diabetic polyneuropathy Type 2 diabetes mellitus with diabetic polyneuropathy, without long-term current use of insulin E11.42 Diabetes mellitus type: type 2 Diabetes mellitus terminal clerk insulin use: without terminal clerk use Diabetes mellitus complication status: with neurologic complications Diabetes mellitus complication detail: with polyneuropathy Lumbar facet arthropathy M47.816 Sacroiliac joint dysfunction of both sides M53.3
== END 2023-08-22 11:51 | disposition home or self-care (01) ==
PROVIDERS: PCP Internal Medicine; Referring Provider Physical Medicine & Rehabilitation; Visit Provider Registered Nurse Emergency
DX: E11.42 Type 2 diabetes mellitus with diabetic polyneuropathy (principal); M47.816 Spondylosis without myelopathy or radiculopathy, lumbar region; M53.3 Sacrococcygeal disorders, not elsewhere classified
CPT/HCPCS: 99204

== ENCOUNTER → 2023-08-22 10:49 | Outpatient (BNVA) | payer OTHER, SELFPAY | PROVIDERS: PCP Internal Medicine; Referring Provider Physical Medicine & Rehabilitation; Visit Provider Registered Nurse Emergency | DX: E11.42 Type 2 diabetes mellitus with diabetic polyneuropathy (principal); M47.816 Spondylosis without myelopathy or radiculopathy, lumbar region; M53.3 Sacrococcygeal disorders, not elsewhere classified | CPT/HCPCS: 99202 ==

== ENCOUNTER 2023-09-21 08:44 | Outpatient (AMB) | payer OTHER, SELFPAY ==
[2023-09-21 08:57] VITALS: BP 134/62; PULSE 72; O2SAT 97; BMI 34.8
--- NOTE | 2023-09-21 08:57 | A.OFFPC_ITS ---
Vital Signs 09/21/23 08:57 Height 5 ft 3 in Weight 196 lb 6 oz BMI 34.8 BP 134/62 Blood Pressure Location Rt brachial Position Sitting Pulse 72 Pulse Source Pulse Oximeter Pulse Oximetry (%) 97 Oxygen Delivery Method Room Air Intake Visit Reasons: Medication Follow Up Allergies No Known Allergies Allergy (Verified 09/21/23 09:00) Medication List - Last Reconciled 09/21/23 by Debbie Begum MD acetaminophen ER (Tylenol 8 Hour) 650 mg PO Q12H amlodipine 5 mg PO DAILY aspirin 81 mg PO DAILY blood sugar diagnostic ([employer] Verio test strips) Once a day blood-glucose meter ([employer] Verio Flex Meter) Once a day calcium citrate-vitamin D3 315 mg-5 mcg (200 unit) 1 tab PO DAILY denosumab (Prolia) 60 mg subcut [id number] diclofenac sodium 1% (Arthritis Pain (diclofenac)) 2 grams topical QID 30 days ezetimibe 10 mg PO DAILY lancets ([employer] Delica Plus Lancet) qd lancets (Pure Comfort Lancets) Test blood sugar once a day levothyroxine 50 mcg PO DAILY lidocaine-prilocaine 2.5-2.5 % 1 appl topical ONCE losartan 100 mg PO DAILY metoprolol succinate ER 25 mg PO DAILY omeprazole magnesium 20 mg PO DAILY pregabalin 50 mg PO TID 30 days sitagliptin phosphate (Januvia) 50 mg PO DAILY triamcinolone acetonide 0.1% appl topical Tobacco use date assessed: 09/21/23 Fall risk assessment: No Falls in past year Last assessed Fall Risk: 09/21/23 Dental Screening Dental Screen Date: 09/21/23 Did you have a dental visit in the last 12 months?: No Did you have a dental problem in the last 6 months where you did not have access to dental care?: No Was dental information given to patient?: Patient has dentist HPI Medication Follow Up HPI Details Patient is 83-year-old female who speaks only Italian came in today for her regular follow-up appointment, patient have professional spectrographic analyst with her Patient is morbidly obese with diabetic neuropathy using walker to ambulate. She is on Lyrica 50 mg t.i.d., because of diabetic neuropathy, which is helping her, refill sent for 3 months Diabetes mellitus continue Januvia hemoglobin A1c is stable due for labs Patient is no longer having mammogram No longer having colonoscopies come no longer seeing OBGYN Arthritic pain managed with diclofenac sodium arthritic rub. She also have a hypothyroidism and is taking levothyroxine 50 mcg , TSH within normal limit Blood pressure is stable: Continue losartan 50 mg patient is tolerating medication she is also on metoprolol 25 mg daily. Lipid disorder: Managed with Zetia 10 mg and diet GERD is stable with omeprazole 20 mg daily Patient sees Dr. Ocampo for Prolia injection every 3 month She is established with Pain Management [facility] Medical History Chronic back pain Left knee DJD Social History Housing: Apartment Patient Tobacco Use Status: Never used Tobacco e-Cigarette/Vaping Use: Never Used Current occupational status: unemployed Current occupation: rt hand Cognitive needs: No Hearing needs: No Vision needs: Yes Questionnaire Thrive Questionnaire Date Thrive assessed: 12/15/22 AUDIT C Alcohol Use Questionnaire (AUDIT-C) 1. How often do you have a drink containing alcohol?: Never 3. How often do you have six or more drinks on one occasion?: Never Total Score: 0 Score Reviewed/Action Taken: Yes SAMI-7 AMB Questionnaire SAMI-7 Date SAMI - 7 assessed: 12/15/22 Source: Developed by Drs. Gm Shaikh, Lolita Alba, Kareem Holguin and colleagues, with an educational neela from [employer]. Review of Systems Const Denies chills and Denies fever(s) ENT Denies epistaxis and Denies nasal discharge Card Denies chest pain Resp Denies chest congestion, Denies cough and Denies hemoptysis GI Denies diarrhea and Denies nausea Skin/Breast Denies rash Neuro Reports no additional complaints Psych Reports no additional complaints Endo Reports no additional complaints Physical exam (Primary Care) Vital Signs: Last Vital Signs Pulse 72 09/21/23 08:57 BP 134/62 09/21/23 08:57 Pulse Ox 97 09/21/23 08:57 Oxygen Delivery Method Room Air 09/21/23 08:57 BMI result Body Mass Index 34.8 Tobacco/Smoking Status: Tobacco use Status Tobacco use date assessed 09/21/23 09/21/23 09:02 Patient Tobacco Use Status Never used Tobacco 09/21/23 09:02 e-Cigarette/Vaping Use Never Used 09/21/23 09:02 Thrive Assessment: Date of Thrive Assessment Date Thrive assessed 12/15/22 09/21/23 09:02 Const Other: Uses walker for ambulation, patient was not able to get on examination table General: cooperative, comfortable and no acute distress Orientation/consciousness: patient oriented x3 HENMT Head: Yes normocephalic Eyes General: appearance normal, both eyes and all related structures Neck Neck: Yes supple Resp Effort & Inspection: normal respiratory effort, no cough and no stridor Cardio Rhythm: regular rhythm Heart sounds: S1 normal heart sound present and S2 normal heart sound present Skin General skin exam: turgor normal Neuro General: patient oriented x3, tone normal and moves all extremities Extrem Right lower extremity: no edema Left lower extremity: no edema Assessment and Plan Assessment & Plan (1) Diabetic neuropathy: Code(s): E11.40 - Type 2 diabetes mellitus with diabetic neuropathy, unspecified Qualifiers: Diabetes mellitus complication detail: diabetic polyneuropathy Diabetes mellitus type: type 2 Qualified Code(s): E11.42 - Type 2 diabetes mellitus with diabetic polyneuropathy (2) Hypertension, essential: Code(s): I10 - Essential (primary) hypertension (3) Lipid disorder: Code(s): E78.9 - Disorder of lipoprotein metabolism, unspecified (4) Hypothyroidism: Code(s): E03.9 - Hypothyroidism, unspecified Qualifiers: Hypothyroidism type: unspecified Qualified Code(s): E03.9 - Hypothyroidism, unspecified (5) Morbid obesity: Code(s): E66.01 - Morbid (severe) obesity due to excess calories (6) Bilateral leg weakness: Code(s): R29.898 - Other symptoms and signs involving the musculoskeletal system (7) Diabetes mellitus type 2 in obese: Code(s): E11.69 - Type 2 diabetes mellitus with other specified complication; E66.9 - Obesity, unspecified (8) Diabetes mellitus: Code(s): E11.9 - Type 2 diabetes mellitus without complications Qualifiers: Diabetes mellitus complication detail: with polyneuropathy Diabetes mellitus complication status: with neurologic complications Diabetes mellitus long term care social worker insulin use: without senior living use Diabetes mellitus type: type 2 Qualified Code(s): E11.42 - Type 2 diabetes mellitus with diabetic polyneuropathy (9) Uses roller walker: Code(s): Z99.89 - Dependence on other enabling machines and devices Plan Patient is 83-year-old female who speaks only Italian came in today for her regular follow-up appointment, patient have professional spectrographic analyst with her Patient is morbidly obese with diabetic neuropathy using walker to ambulate. She is on Lyrica 50 mg t.i.d., because of diabetic neuropathy, which is helping her, refill sent for 3 months Diabetes mellitus continue Januvia hemoglobin A1c is stable due for labs Patient is no longer having mammogram No longer having colonoscopies come no longer seeing OBGYN Arthritic pain managed with diclofenac sodium arthritic rub. She also have a hypothyroidism and is taking levothyroxine 50 mcg , TSH within normal limit Blood pressure is stable: Continue losartan 50 mg patient is tolerating medication she is also on metoprolol 25 mg daily. Lipid disorder: Managed with Zetia 10 mg and diet GERD is stable with omeprazole 20 mg daily Patient sees Dr. Ocampo for Prolia injection every 3 month She is established with Pain Management [facility] Orders: Orders LDL Cholesterol Direct Today E03.9 - Hypothyroidism, unspecified, E11.40 - Type 2 diabetes mellitus with diabetic neuropathy, unspecified, E11.69 - Type 2 diabetes mellitus with other specified complication, E66.01 - Morbid (severe) obesity due to excess calories, E66.9 - Obesity, unspecified, E78.9 - Disorder of lipoprotein metabolism, unspecified, I10 - Essential (primary) hypertension, R29.898 - Other symptoms and signs involving the musculoskeletal system Hemoglobin A1c Today E03.9 - Hypothyroidism, unspecified, E11.40 - Type 2 diabetes mellitus with diabetic neuropathy, unspecified, E11.69 - Type 2 diabetes mellitus with other specified complication, E66.01 - Morbid (severe) obesity due to excess calories, E66.9 - Obesity, unspecified, E78.9 - Disorder of lipoprotein metabolism, unspecified, I10 - Essential (primary) hypertension, R29.898 - Other symptoms and signs involving the musculoskeletal system Complete Blood Count Auto Diff Today E03.9 - Hypothyroidism, unspecified, E11.40 - Type 2 diabetes mellitus with diabetic neuropathy, unspecified, E11.69 - Type 2 diabetes mellitus with other specified complication, E66.01 - Morbid (severe) obesity due to excess calories, E66.9 - Obesity, unspecified, E78.9 - Disorder of lipoprotein metabolism, unspecified, I10 - Essential (primary) hypertension, R29.898 - Other symptoms and signs involving the musculoskeletal system Comprehensive Met. Panel Today E03.9 - Hypothyroidism, unspecified, E11.40 - Type 2 diabetes mellitus with diabetic neuropathy, unspecified, E11.69 - Type 2 diabetes mellitus with other specified complication, E66.01 - Morbid (severe) obesity due to excess calories, E66.9 - Obesity, unspecified, E78.9 - Disorder of lipoprotein metabolism, unspecified, I10 - Essential (primary) hypertension, R29.898 - Other symptoms and signs involving the musculoskeletal system TSH reflex Free T4 Today E03.9 - Hypothyroidism, unspecified, E11.40 - Type 2 diabetes mellitus with diabetic neuropathy, unspecified, E11.69 - Type 2 diabetes mellitus with other specified complication, E66.01 - Morbid (severe) obesity due to excess calories, E66.9 - Obesity, unspecified, E78.9 - Disorder of lipoprotein metabolism, unspecified, I10 - Essential (primary) hypertension, R29.898 - Other symptoms and signs involving the musculoskeletal system Microalbumin, Random (w Creat) Today E03.9 - Hypothyroidism, unspecified, E11.40 - Type 2 diabetes mellitus with diabetic neuropathy, unspecified, E11.69 - Type 2 diabetes mellitus with other specified complication, E66.01 - Morbid (severe) obesity due to excess calories, E66.9 - Obesity, unspecified, E78.9 - Disorder of lipoprotein metabolism, unspecified, I10 - Essential (primary) hypertension, R29.898 - Other symptoms and signs involving the musculoskeletal system Medications: Changed From pregabalin 50 mg PO TID 30 days 90 caps 0RF To pregabalin 50 mg PO TID 270 caps 0RF 90 days Refilled sitagliptin phosphate (Januvia) 50 mg PO DAILY 90 tabs 3RF metoprolol succinate ER 25 mg PO DAILY 90 tabs 1RF Coding Level of Care Code Est Pt Level 4 (81865) Diagnoses Diabetic polyneuropathy associated with type 2 diabetes mellitus E11.42 Diabetes mellitus complication detail: diabetic polyneuropathy Diabetes mellitus type: type 2 Hypertension, essential I10 Lipid disorder E78.9 Hypothyroidism, unspecified type E03.9 Hypothyroidism type: unspecified Morbid obesity E66.01 Bilateral leg weakness R29.898 Diabetes mellitus type 2 in obese E11.69; E66.9 Type 2 diabetes mellitus with diabetic polyneuropathy, without long-term current use of insulin E11.42 Diabetes mellitus complication detail: with polyneuropathy Diabetes mellitus complication status: with neurologic complications Diabetes mellitus long term care social worker insulin use: without senior living use Diabetes mellitus type: type 2 Uses roller walker Z99.89
== END 2023-09-21 09:23 | disposition home or self-care (01) ==
PROVIDERS: PCP Internal Medicine; Visit Provider Internal Medicine
DX: E11.42 Type 2 diabetes mellitus with diabetic polyneuropathy (principal); E66.01 Morbid (severe) obesity due to excess calories; E11.69 Type 2 diabetes mellitus with other specified complication; E66.9 Obesity, unspecified; Z68.34 Body mass index [BMI] 34.0-34.9, adult; I10 Essential (primary) hypertension; E78.9 Disorder of lipoprotein metabolism, unspecified; R29.898 Other symptoms and signs involving the musculoskeletal system; E03.9 Hypothyroidism, unspecified; Z99.89 Dependence on other enabling machines and devices
CPT/HCPCS: 99214

== ENCOUNTER 2023-09-25 06:14 | Outpatient (REF) | payer OTHER, SELFPAY ==
--- NOTE | ~2023-09-25 | FL_ITS ---
EXAMINATION: XR FLUOROSCOPY WITH IMAGES CLINICAL INFORMATION: Sacrococcygeal disorders, not elsewhere classified. COMPARISON: None available. TECHNIQUE: Fluoroscopy Supervised By: Dr. Adrian Wiley. Fluoroscopy Time: 14.5 seconds. Cumulative Dose: 9.37 mGy. DAP: None available on this machine. Images: 4. FINDINGS: Images demonstrate needle placement and contrast injection over the bilateral sacroiliac joints FL/FL guidance in treatment room IMPRESSION: Fluoroscopy guidance for bilateral sacroiliac joint injection.
== END 2023-09-25 06:15 | disposition home or self-care (01) ==
LOC: CF 06:14
PROVIDERS: Visit Provider Anesthesiology
DX: M53.3 Sacrococcygeal disorders, not elsewhere classified (principal); E11.42 Type 2 diabetes mellitus with diabetic polyneuropathy; M47.816 Spondylosis without myelopathy or radiculopathy, lumbar region
CPT/HCPCS: 27096; J2795; Q9967

== ENCOUNTER 2023-09-25 11:09 | Outpatient (AMB) | payer OTHER, SELFPAY ==
--- NOTE | 2023-09-25 11:14 | A.OFFVIS_ITS ---
Intake Vital Signs 09/25/23 13:02 09/25/23 13:03 Height 5 ft 3 in 5 ft 3 in Weight 196 lb 196 lb BMI 34.7 34.7 BP 138/82 126/66 Blood Pressure Location Lt brachial Lt brachial Position Sitting Sitting Respiration 12 12 Pulse 78 75 Pulse Source Pulse Oximeter Pulse Oximeter Pulse Oximetry (%) 98 95 Oxygen Delivery Method Room Air Room Air Comment pre-op post-op Intake Visit Reasons: BILATERAL DIAGNOSTIC SIJ INJECTIONS Allergies No Known Allergies Allergy (Verified 09/21/23 09:00) PFSH Medical History Chronic back pain Left knee DJD Social History Housing: Apartment Patient Tobacco Use Status: Never used Tobacco e-Cigarette/Vaping Use: Never Used Current occupational status: unemployed Current occupation: rt hand Cognitive needs: No Hearing needs: No Vision needs: Yes Assessment & Plan Assessment & Plan (1) Diabetic neuropathy: Code(s): E11.40 - Type 2 diabetes mellitus with diabetic neuropathy, unspecified Qualifiers: Diabetes mellitus type: type 2 Diabetes mellitus complication detail: diabetic polyneuropathy Qualified Code(s): E11.42 - Type 2 diabetes mellitus with diabetic polyneuropathy (2) Diabetes mellitus: Code(s): E11.9 - Type 2 diabetes mellitus without complications Qualifiers: Diabetes mellitus type: type 2 Diabetes mellitus mcc insulin use: without regional intermodal truck driver use Diabetes mellitus complication status: with neurologic complications Diabetes mellitus complication detail: with polyneuropathy Qualified Code(s): E11.42 - Type 2 diabetes mellitus with diabetic polyneuropathy (3) Lumbar facet arthropathy: Code(s): M47.816 - Spondylosis without myelopathy or radiculopathy, lumbar region (4) Sacroiliac joint dysfunction of both sides: Code(s): M53.3 - Sacrococcygeal disorders, not elsewhere classified Plan: Bilateral diagnostic sacroiliac joint injection Informed consent was explained thoroughly to the patient. All questions about benefits and risks for the procedure were answered. Patient came to the operating room and was positioned prone on the operating table with the pillow under the pelvis. Time out was performed delineating name and of the patient, allergies and the nature of the procedure. The lower back and buttocks of the patient were prepped with ChloraPrep prepped and draped with sterile utility towels. C-arm was brought over the operating field and sq picture of patient's pelvis was demonstrated on the screen. For the right joint tilting C-arm contralateral to the site of the joint the most posterior portion of the joints was superimposed with anterior silhouette of the joint. Skin was injected in the projection of the joint slightly medial to the location of the joint with 25 gauge 1/2 inch needle using local lidocaine 2% . After that 22 gauge 3 and 1/2 inch needle was driven to the right joint in tunnel vision fashion. When needle entered the joint capsule injection of the contrast was performed demonstrating intra-articular and minimally periarticular spread of the contrast. After that 4 cc. of ropivacaine 0.5% was injected into the joint. After that the same procedure was repeated on the left joint in mirroring fashion. Upon completion of the injections the needle was removed Sterile dressing was applied. Upon completion of the injection patient was taken outside of the operating room to the recovery room where recovered uneventfully. Plan Leona is a very pleasant 83-year-old female who presented to the office today for evaluation management of her chronic lower back pain. History, physical exam and provocative testing consistent with lumbar facet arthropathy, bilateral sacroiliac joint dysfunction and painful diabetic neuropathy bilateral. Patient has exhausted conservative treatment including physical therapy, home exercise program, [id number] medications and prescription medications. Discussed options for treatment including diagnostic interventional testing, steroid injections, peripheral nerve stimulation with Sprint, RFA and more permanent neuromodulation. Informational pamphlets provided. For her peripheral neuropathy will submit prior authorization for topical capsaicin in office application. Patient advised of pre and post expectations. Patient reports sacroiliac joint pain is more bothersome than her midline axial back pain. She would like to address this area with injections 1st. Will schedule for fluoroscopy guided diagnostic bilateral sacroiliac joint injections with local anesthetic. All questions and concerns have been answered and patient agrees with the plan. Follow up after injections and sooner if needed. Orders: Orders FL guidance in treatment room Today M53.3 - Sacrococcygeal disorders, not elsewhere classified Coding Level of Care Code Procedure Only Diagnoses Diabetic polyneuropathy associated with type 2 diabetes mellitus E11.42 Diabetes mellitus type: type 2 Diabetes mellitus complication detail: diabetic polyneuropathy Type 2 diabetes mellitus with diabetic polyneuropathy, without long-term current use of insulin E11.42 Diabetes mellitus type: type 2 Diabetes mellitus regional intermodal truck driver insulin use: without mcc use Diabetes mellitus complication status: with neurologic complications Diabetes mellitus complication detail: with polyneuropathy Lumbar facet arthropathy M47.816 Sacroiliac joint dysfunction of both sides M53.3
[2023-09-25 13:02] VITALS: BP 138/82; PULSE 78; RESP 12; O2SAT 98; BMI 34.7
[2023-09-25 13:03] VITALS: BP 126/66; PULSE 75; RESP 12; O2SAT 95; BMI 34.7
== END 2023-09-25 12:09 | disposition home or self-care (01) ==
LOC: HO.PMCPRC 11:09
PROVIDERS: PCP Internal Medicine; Visit Provider Anesthesiology
DX: M53.3 Sacrococcygeal disorders, not elsewhere classified (principal); E11.42 Type 2 diabetes mellitus with diabetic polyneuropathy; M47.816 Spondylosis without myelopathy or radiculopathy, lumbar region
CPT/HCPCS: 27096

== ENCOUNTER 2023-10-02 09:59 | Outpatient (AMB) | payer OTHER, SELFPAY ==
[2023-10-02 10:28] VITALS: BP 143/66; PULSE 75; RESP 16; O2SAT 97; BMI 33.7
--- NOTE | 2023-10-02 10:28 | A.OFFVIS_ITS ---
Intake Vital Signs 10/02/23 10:28 Height 5 ft 3 in Weight 190 lb 4 oz BMI 33.7 BP 143/66 H Blood Pressure Location Lt brachial Position Sitting Respiration 16 Pulse 75 Pulse Source Pulse Oximeter Pulse Oximetry (%) 97 Oxygen Delivery Method Room Air Intake Visit Reasons: QUTENZA Allergies No Known Allergies Allergy (Verified 09/21/23 09:00) HPI HPI Comments History of Present Illness Details Patient presents to the office today for follow up bilateral diagnostic SIJ injections 09/25/23 Her appointment today also showed Qutenza application but patient was not aware that this was planned. She did not apply to topical EMLA cream prior to the appt. Patient reports 80% pain relief after the injections with improvement in function and mobility. She reports the injections were painful and is unsure about proceeding with therapeutic ones Taking Tylenol and applying topical cream to the area with some relief. Prior: Leona is a very pleasant 83-year-old female who presents the office today, accompanied by medical delivery driver, for evaluation and management her chronic back pain. Patient reports that she has been suffering with this pain for greater than 15 years. States that it is only getting worse as time goes on. She is currently taking Tylenol and Lyrica for pain with minimal relief. Completed physical therapy a couple months ago without improvement of her pain. She states approximately 1 year ago she had epidural steroid injection at [facility] that did not improve her back pain. She has never attempted manual manipulation with chiropractor, acupuncture or massage. Pain is worse with walking and when transitioning from sit to stand. Patient reports radiation of the pain into the buttocks and upper thigh. She denies radiation of the pain past the level of the knee on either side. 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 She is currently under care at the [facility] where she is getting injections for her hands and knees. Most recent injection was more than 1 month ago. Patient denies red flag symptoms including new loss of bowel, bladder or saddle anesthesia. In terms of muscle damage condition is described as pulsing, throbbing, pounding, pinching, cramping, crushing, tiring, exhausting, stabbing, lancinating, tingling and stinging. Pain is negatively impacting patient's ability to perform activities of daily living, care for self and function normally. He she does have a MAINTENANCE DEPARTMENT MANAGER to help around the house. Patient has a history of osteoporosis, she is currently being treated with medications including Prolia. Up-to-date on DEXA with next due October of 2023. PFSH Medical History Chronic back pain Left knee DJD Social History Housing: Apartment Patient Tobacco Use Status: Never used Tobacco e-Cigarette/Vaping Use: Never Used Current occupational status: unemployed Current occupation: rt hand Cognitive needs: No Hearing needs: No Vision needs: Yes Review of Systems Const All systems reviewed & are unremarkable except as noted in HPI and below Physical Exam Vital Signs: Last Vital Signs Pulse 75 10/02/23 10:28 Resp 16 10/02/23 10:28 BP 143/66 H 10/02/23 10:28 Pulse Ox 97 10/02/23 10:28 Oxygen Delivery Method Room Air 10/02/23 10:28 BMI result Body Mass Index 33.7 General: awake, alert, oriented. Answers questions appropriately. Fully engaged in examination. Skin: warm, dry, intact HEENT: Normocephalic. Hearing intact. Cardiac: External chest normal in appearance. Respiratory: No cough, audible wheezing or stridor. Abdomen: without gross distension. MS: No obvious swelling or deformities. Able to transition from sit to stand unassisted. Ambulates with bilaterally normal heel strike and toe off Neurological: Oriented to person, place, time and situation. Thought process intact. Ambulates with the use a Rollator walker Psychiatric: Appropriate mood and affect. Good judgment and insight. Results Reviewed Results Reviewed: 07/18/23 XR/XR lumbar spine 2-3V FINDINGS: Visualization limited due to body habitus. Surgical clips in the right upper quadrant of the abdomen. Atherosclerotic aortoiliac calcifications. Facet arthritis in the lower lumbar spine. Advanced degenerative changes in the imaged lower thoracic spine. Minimal retrolisthesis of L1 on L2. Multilevel degenerative changes in the lumbar spine with marked loss of disc space height at L2-L3. Grade 1 anterolisthesis of L4 on L5. Moderate degenerative changes with loss of disc space height at L5-S1. Facet arthritis in the lower lumbar spine. IMPRESSION: Advanced multilevel degenerative changes in the lumbar spine. Assessment & Plan Assessment & Plan (1) Diabetic neuropathy: Code(s): E11.40 - Type 2 diabetes mellitus with diabetic neuropathy, unspecified Qualifiers: Diabetes mellitus type: type 2 Diabetes mellitus complication detail: diabetic polyneuropathy Qualified Code(s): E11.42 - Type 2 diabetes mellitus with diabetic polyneuropathy (2) Diabetes mellitus: Code(s): E11.9 - Type 2 diabetes mellitus without complications Qualifiers: Diabetes mellitus type: type 2 Diabetes mellitus superintendent container terminal insulin use: without superintendent container terminal use Diabetes mellitus complication status: with neurologic complications Diabetes mellitus complication detail: with polyneuropathy Qualified Code(s): E11.42 - Type 2 diabetes mellitus with diabetic polyneuropathy (3) Lumbar facet arthropathy: Code(s): M47.816 - Spondylosis without myelopathy or radiculopathy, lumbar region (4) Sacroiliac joint dysfunction of both sides: Code(s): M53.3 - Sacrococcygeal disorders, not elsewhere classified Plan Leona is a very pleasant 83-year-old female who presented to the office today for follow up s/p bilateral diiagnostic SIJ injections 09/25/23 Patient reports 80% pain relief after the injections with improvement in function and mobility. She is not ready to proceed with therapeutic SIJ injections at this time, she will let the office know when she is ready to proceed. [facility] appt rescheduled, she was advised of pre and post expectations. Patient has EMLA cream at home. All questions and concerns have been answered and patient agrees with the plan. Follow up for Dayo vu, sooner if needed. Coding Level of Care Code Est Pt Level 3 (06087) Diagnoses Diabetic polyneuropathy associated with type 2 diabetes mellitus E11.42 Diabetes mellitus type: type 2 Diabetes mellitus complication detail: diabetic polyneuropathy Type 2 diabetes mellitus with diabetic polyneuropathy, without long-term current use of insulin E11.42 Diabetes mellitus type: type 2 Diabetes mellitus superintendent container terminal insulin use: without fpc use Diabetes mellitus complication status: with neurologic complications Diabetes mellitus complication detail: with polyneuropathy Lumbar facet arthropathy M47.816 Sacroiliac joint dysfunction of both sides M53.3
== END 2023-10-02 10:44 | disposition home or self-care (01) ==
PROVIDERS: PCP Internal Medicine; Visit Provider Registered Nurse Emergency
DX: E11.42 Type 2 diabetes mellitus with diabetic polyneuropathy (principal); M47.816 Spondylosis without myelopathy or radiculopathy, lumbar region; M53.3 Sacrococcygeal disorders, not elsewhere classified
CPT/HCPCS: 99213

== ENCOUNTER → 2023-10-02 09:59 | Outpatient (BNVA) | payer OTHER, SELFPAY | PROVIDERS: PCP Internal Medicine; Visit Provider Registered Nurse Emergency | DX: E11.42 Type 2 diabetes mellitus with diabetic polyneuropathy (principal); M47.816 Spondylosis without myelopathy or radiculopathy, lumbar region; M53.3 Sacrococcygeal disorders, not elsewhere classified | CPT/HCPCS: 99212 ==

== ENCOUNTER 2023-10-24 12:57 | Outpatient (AMB) | payer OTHER, SELFPAY ==
[2023-10-24 13:23] VITALS: BP 131/60; PULSE 75; RESP 16; O2SAT 98; BMI 33.8
--- NOTE | 2023-10-24 13:23 | A.OFFVIS_ITS ---
Intake Vital Signs 10/24/23 13:23 10/24/23 13:51 10/24/23 14:14 Height 5 ft 3 in Weight 191 lb BMI 33.8 BP 131/60 141/74 H 138/66 Blood Pressure Location Lt brachial Lt brachial Lt brachial Position Sitting Sitting Sitting Respiration 16 Pulse 75 Pulse Source Pulse Oximeter Pulse Oximetry (%) 98 Oxygen Delivery Method Room Air Intake Visit Reasons: Qutenza-DN/confirmed Allergies No Known Allergies Allergy (Verified 10/24/23 13:21) HPI HPI Comments History of Present Illness Details Leona presents back to the office today for first Qutenza application. Patient applied EMLA cream at home per instructions. She is accompanied by director of graduate medical education. She denies any changes in her painful bilateral peripheral neuropathy since last visit. Denies new meds, allergies or diagnoses. Patient denies any recent injuries or wounds to his feet. Prior: Patient presents to the office today for follow up bilateral diagnostic SIJ injections 09/25/23 Her appointment today also showed Qutenza application but patient was not aware that this was planned. She did not apply to topical EMLA cream prior to the appt. Patient reports 80% pain relief after the injections with improvement in function and mobility. She reports the injections were painful and is unsure about proceeding with therapeutic ones Taking Tylenol and applying topical cream to the area with some relief. Prior: Leona is a very pleasant 83-year-old female who presents the office today, accompanied by director of graduate medical education, for evaluation and management her chronic back pain. Patient reports that she has been suffering with this pain for greater than 15 years. States that it is only getting worse as time goes on. She is currently taking Tylenol and Lyrica for pain with minimal relief. Completed physical therapy a couple months ago without improvement of her pain. She states approximately 1 year ago she had epidural steroid injection at [facility] that did not improve her back pain. She has never attempted manual manipulation with chiropractor, acupuncture or massage. Pain is worse with walking and when transitioning from sit to stand. Patient reports radiation of the pain into the buttocks and upper thigh. She denies radiation of the pain past the level of the knee on either side. 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 She is currently under care at the [facility] where she is getting injections for her hands and knees. Most recent injection was more than 1 month ago. Patient denies red flag symptoms including new loss of bowel, bladder or saddle anesthesia. In terms of muscle damage condition is described as pulsing, throbbing, pounding, pinching, cramping, crushing, tiring, exhausting, stabbing, lancinating, tingling and stinging. Pain is negatively impacting patient's ability to perform activities of daily living, care for self and function normally. He she does have a COUNTER HELPER to help around the house. Patient has a history of osteoporosis, she is currently being treated with medications including Prolia. Up-to-date on DEXA with next due October. PFSH Medical History Chronic back pain Left knee DJD Social History Housing: Apartment Patient Tobacco Use Status: Never used Tobacco e-Cigarette/Vaping Use: Never Used Current occupational status: unemployed Current occupation: rt hand Cognitive needs: No Hearing needs: No Vision needs: Yes Review of Systems Const All systems reviewed & are unremarkable except as noted in HPI and below Physical Exam Vital Signs: Last Vital Signs Pulse 75 10/24/23 13:23 Resp 16 10/24/23 13:23 BP 131/60 10/24/23 13:23 Pulse Ox 98 10/24/23 13:23 Oxygen Delivery Method Room Air 10/24/23 13:23 BMI result Body Mass Index 33.8 General: awake, alert, oriented. Answers questions appropriately. Fully engaged in examination. Skin: warm, dry, intact. both feet without wounds, lesions or sores. HEENT: Normocephalic. Hearing intact. Cardiac: External chest normal in appearance. Respiratory: No cough, audible wheezing or stridor. Abdomen: without gross distension. MS: No obvious swelling or deformities. Able to transition from sit to stand unassisted. Ambulates with bilaterally normal heel strike and toe off Neurological: Oriented to person, place, time and situation. Thought process intact. Ambulates with the use a Rollator walker Psychiatric: Appropriate mood and affect. Good judgment and insight. Office Procedures Topical Capsaicin Date 1:: 10/24/23 Main area of pain on the body: Feet Laterality: Bilateral Location of left foot pain: Plantar, Dorsal, Medial and Lateral Location of right foot pain: Anterior, Posterior, Plantar, Proximal, Dorsal, Medial, Lateral and Distal Quality of pain: Aching and Burning Office Meds capsaicin-skin cleanser 8 % topical kit Performing Provider: Marquita Rider APRN, CNP Performing Location: [facility] Administered by: Marquita Rider APRN, CNP on 10/24/23 13:34 Dose Route Admin Location Dispensed Lot Number Expiration Date [facility] [employer] Cleaner 4 ea topical 4 ea [id number] 02/08/26 16512-388-74 [place] Comments: Patient applied topical EMLA cream to both feet prior to arrival for her scheduled appointment. Feet exposed, no wounds, rashes or breaks in skin noted. Light touch sensation intact bilaterally. Four single use topical patches (179mg capsaicin) divided between feet, 2 patches per foot, wrapped and secured per package instructions. Patient monitored throughout the procedure with BP checks every 15 minutes. She tolerated the 30 minute application well. Results Reviewed Results Reviewed: 07/18/23 XR/XR lumbar spine 2-3V FINDINGS: Visualization limited due to body habitus. Surgical clips in the right upper quadrant of the abdomen. Atherosclerotic aortoiliac calcifications. Facet arthritis in the lower lumbar spine. Advanced degenerative changes in the imaged lower thoracic spine. Minimal retrolisthesis of L1 on L2. Multilevel degenerative changes in the lumbar spine with marked loss of disc space height at L2-L3. Grade 1 anterolisthesis of L4 on L5. Moderate degenerative changes with loss of disc space height at L5-S1. Facet arthritis in the lower lumbar spine. IMPRESSION: Advanced multilevel degenerative changes in the lumbar spine. Assessment & Plan Assessment & Plan (1) Diabetic neuropathy: Code(s): E11.40 - Type 2 diabetes mellitus with diabetic neuropathy, unspecified Qualifiers: Diabetes mellitus type: type 2 Diabetes mellitus complication detail: diabetic polyneuropathy Qualified Code(s): E11.42 - Type 2 diabetes mellitus with diabetic polyneuropathy (2) Diabetes mellitus: Code(s): E11.9 - Type 2 diabetes mellitus without complications Qualifiers: Diabetes mellitus type: type 2 Diabetes mellitus long term acute care registered nurse insulin use: without shelter use Diabetes mellitus complication status: with neurologic complications Diabetes mellitus complication detail: with polyneuropathy Qualified Code(s): E11.42 - Type 2 diabetes mellitus with diabetic polyneuropathy (3) Lumbar facet arthropathy: Code(s): M47.816 - Spondylosis without myelopathy or radiculopathy, lumbar region (4) Sacroiliac joint dysfunction of both sides: Code(s): M53.3 - Sacrococcygeal disorders, not elsewhere classified Plan Leona is a very pleasant 83-year-old female who presented to the office today for 1st Qutenza topical application for bilateral peripheral neuropathy. Qutenza application as per above. Patient tolerated well, discharged home with no reported untoward effects. Cleansing gel applied prior to discharge, patient given cleansing gel for home use if needed. All questions and concerns were answered. Patient will follow up in the office as planned for next Qutenza application. Orders: Orders AMB Capsaicin Patch - Practice Supplied Today E11.40 - Type 2 diabetes mellitus with diabetic neuropathy, unspecified Coding Level of Care Code Est Pt Level 4 (99202) Diagnoses Diabetic polyneuropathy associated with type 2 diabetes mellitus E11.42 Diabetes mellitus type: type 2 Diabetes mellitus complication detail: diabetic polyneuropathy Type 2 diabetes mellitus with diabetic polyneuropathy, without long-term current use of insulin E11.42 Diabetes mellitus type: type 2 Diabetes mellitus long term acute care registered nurse insulin use: without shelter use Diabetes mellitus complication status: with neurologic complications Diabetes mellitus complication detail: with polyneuropathy Lumbar facet arthropathy M47.816 Sacroiliac joint dysfunction of both sides M53.3
[2023-10-24 13:51] VITALS: BP 141/74
[2023-10-24 14:14] VITALS: BP 138/66
== END 2023-10-24 14:17 | disposition home or self-care (01) ==
PROVIDERS: PCP Internal Medicine; Visit Provider Registered Nurse Emergency
DX: E11.42 Type 2 diabetes mellitus with diabetic polyneuropathy (principal); M47.816 Spondylosis without myelopathy or radiculopathy, lumbar region; M53.3 Sacrococcygeal disorders, not elsewhere classified
CPT/HCPCS: 17999; 99214

== ENCOUNTER → 2023-10-24 12:57 | Outpatient (BNVA) | payer OTHER, SELFPAY | PROVIDERS: PCP Internal Medicine; Visit Provider Registered Nurse Emergency | DX: E11.42 Type 2 diabetes mellitus with diabetic polyneuropathy (principal); M47.816 Spondylosis without myelopathy or radiculopathy, lumbar region; M53.3 Sacrococcygeal disorders, not elsewhere classified; Z68.33 Body mass index [BMI] 33.0-33.9, adult | CPT/HCPCS: 17999; 99212; J7336 ==

== ENCOUNTER 2024-02-01 10:47 | Outpatient (AMB) | payer OTHER, SELFPAY ==
[2024-02-01 11:03] VITALS: BP 146/73; PULSE 79; RESP 18; O2SAT 97; BMI 34.4
--- NOTE | 2024-02-01 11:03 | MHC.OFFVIS ---
Vital Signs 02/01/24 11:03 02/01/24 12:14 02/01/24 12:14 Height 5 ft 3 in Weight 194 lb BMI 34.4 BP 146/73 H 147/53 H 149/72 H Blood Pressure Location Lt brachial Lt brachial Lt brachial Position Sitting Sitting Sitting Respiration 18 Pulse 79 Pulse Source Pulse Oximeter Pulse Oximetry (%) 97 Oxygen Delivery Method Room Air Intake Visit Reasons: Qutenza - 2nd Treatment Allergies No Known Allergies Allergy (Verified 10/24/23 13:21) Medication List - Last Reconciled 02/01/24 by Marquita Rider APRN, RECREATIONAL VEHICLE REPAIRER acetaminophen ER (Tylenol 8 Hour) 650 mg PO Q12H amiodarone 200 mg PO DAILY amlodipine 5 mg PO DAILY apixaban (Eliquis) 5 mg PO BID blood sugar diagnostic (FP Complete Verio test strips) Once a day blood-glucose meter (FP Complete Verio Flex Meter) Once a day calcium citrate-vitamin D3 315 mg-5 mcg (200 unit) 1 tab PO DAILY denosumab (Prolia) 60 mg subcut [id number] diclofenac sodium 1% (Arthritis Pain (diclofenac)) 2 grams topical QID 30 days ezetimibe 10 mg PO DAILY lancets (HabitRPGTouch Delica Plus Lancet) qd lancets (Pure Comfort Lancets) Test blood sugar once a day levothyroxine 50 mcg PO DAILY lidocaine-prilocaine 2.5-2.5 % 1 appl topical ONCE losartan 100 mg PO DAILY metoprolol succinate ER 25 mg PO DAILY omeprazole magnesium 20 mg PO DAILY pregabalin 50 mg PO TID 90 days sitagliptin phosphate (Januvia) 50 mg PO DAILY triamcinolone acetonide 0.1% appl topical umeclidinium 62.5 mcg/actuation (Incruse Ellipta) 1 inh inhalation DAILY HPI Comments Details: Leona presents back to the office today for second Qutenza application. Patient applied EMLA cream at home per instructions. She is accompanied by medical management trainer. Denies any recent injuries or wounds to her feet. Since last visit patient experienced 2 falls. one while she was in [place]. She went to the ER, diagnosed with afib. She has been started on Eliquis and Amiodarone. Reports left arm pain after fall. Xrays were negative for fracture. Prior: Patient presents to the office today for follow up bilateral diagnostic SIJ injections 09/25/23 Her appointment today also showed Qutenza application but patient was not aware that this was planned. She did not apply to topical EMLA cream prior to the appt. Patient reports 80% pain relief after the injections with improvement in function and mobility. She reports the injections were painful and is unsure about proceeding with therapeutic ones Taking Tylenol and applying topical cream to the area with some relief. Prior: Leona is a very pleasant 83-year-old female who presents the office today, accompanied by medical management trainer, for evaluation and management her chronic back pain. Patient reports that she has been suffering with this pain for greater than 15 years. States that it is only getting worse as time goes on. She is currently taking Tylenol and Lyrica for pain with minimal relief. Completed physical therapy a couple months ago without improvement of her pain. She states approximately 1 year ago she had epidural steroid injection at [facility] that did not improve her back pain. She has never attempted manual manipulation with chiropractor, acupuncture or massage. Pain is worse with walking and when transitioning from sit to stand. Patient reports radiation of the pain into the buttocks and upper thigh. She denies radiation of the pain past the level of the knee on either side. 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 She is currently under care at [facility] where she is getting injections for her hands and knees. Most recent injection was more than 1 month ago. Patient denies red flag symptoms including new loss of bowel, bladder or saddle anesthesia. In terms of muscle damage condition is described as pulsing, throbbing, pounding, pinching, cramping, crushing, tiring, exhausting, stabbing, lancinating, tingling and stinging. Pain is negatively impacting patient's ability to perform activities of daily living, care for self and function normally. He she does have a DATA CENTER ARCHITECT to help around the house. Patient has a history of osteoporosis, she is currently being treated with medications including Prolia. Up-to-date on DEXA with next due October of 2023. [facility] Medical History Chronic back pain Left knee DJD Social History Housing: Apartment Patient Tobacco Use Status: Never used Tobacco e-Cigarette/Vaping Use: Never Used Current occupational status: unemployed Current occupation: rt hand Cognitive needs: No Hearing needs: No Vision needs: Yes Review of Systems Const All systems reviewed & are unremarkable except as noted in HPI and below Physical Exam Vital Signs: Last Vital Signs Pulse 79 02/01/24 11:03 Resp 18 02/01/24 11:03 BP 149/72 H 02/01/24 12:14 Pulse Ox 97 02/01/24 11:03 Oxygen Delivery Method Room Air 02/01/24 11:03 BMI result Body Mass Index 34.4 General: awake, alert, oriented. Answers questions appropriately. Fully engaged in examination. Skin: warm, dry, intact. both feet without wounds, lesions or sores. HEENT: Normocephalic. Hearing intact. Cardiac: External chest normal in appearance. Vascular: varicosities bilaterally Respiratory: No cough, audible wheezing or stridor. Abdomen: without gross distension. MS: Right upper arm yellow/purple bruising. Decreased ROM, pain with abduction. Able to transition from sit to stand unassisted. Ambulates with bilaterally normal heel strike and toe off Neurological: Oriented to person, place, time and situation. Thought process intact. Ambulates with the use a Rollator walker Psychiatric: Appropriate mood and affect. Good judgment and insight. Office Meds capsaicin-skin cleanser 8 % topical kit Performing Provider: Marquita Rider APRN, CNP Performing Location: [facility] Administered by: Marquita Rider APRN, CNP on 02/01/24 12:23 Dose Route Admin Location Dispensed Lot Number Expiration Date [facility] Slip Injector And Applicator 4 ea topical 4 ea [id number] 03/10/26 96645-263-63 [employer] Comments: Patient applied topical EMLA cream to both feet prior to arrival for her scheduled appointment. Feet exposed, no wounds, rashes or breaks in skin noted. Light touch sensation intact bilaterally. Four single use topical patches (179mg capsaicin) divided between feet, 2 patches per foot, wrapped and secured per package instructions. Patient monitored throughout the procedure with BP checks every 15 minutes. She tolerated the 30 minute application well. Results Reviewed Results Reviewed: 07/18/23 XR/XR lumbar spine 2-3V FINDINGS: Visualization limited due to body habitus. Surgical clips in the right upper quadrant of the abdomen. Atherosclerotic aortoiliac calcifications. Facet arthritis in the lower lumbar spine. Advanced degenerative changes in the imaged lower thoracic spine. Minimal retrolisthesis of L1 on L2. Multilevel degenerative changes in the lumbar spine with marked loss of disc space height at L2-L3. Grade 1 anterolisthesis of L4 on L5. Moderate degenerative changes with loss of disc space height at L5-S1. Facet arthritis in the lower lumbar spine. IMPRESSION: Advanced multilevel degenerative changes in the lumbar spine. Assessment & Plan Assessment & Plan (1) Peripheral vascular disease: Code(s): I73.9 - Peripheral vascular disease, unspecified Category: Medical (2) Diabetic neuropathy: Code(s): E11.40 - Type 2 diabetes mellitus with diabetic neuropathy, unspecified Category: Medical Qualifiers: Diabetes mellitus type: type 2 Diabetes mellitus complication detail: diabetic polyneuropathy Qualified Code(s): E11.42 - Type 2 diabetes mellitus with diabetic polyneuropathy (3) Diabetes mellitus: Code(s): E11.9 - Type 2 diabetes mellitus without complications Category: Medical Qualifiers: Diabetes mellitus type: type 2 Diabetes mellitus snf insulin use: without snf use Diabetes mellitus complication status: with neurologic complications Diabetes mellitus complication detail: with polyneuropathy Qualified Code(s): E11.42 - Type 2 diabetes mellitus with diabetic polyneuropathy (4) Lumbar facet arthropathy: Code(s): M47.816 - Spondylosis without myelopathy or radiculopathy, lumbar region Category: Medical (5) Sacroiliac joint dysfunction of both sides: Code(s): M53.3 - Sacrococcygeal disorders, not elsewhere classified Category: Medical Plan Leona presented back to the office today for 2nd Qutenza topical application for bilateral peripheral neuropathy. Qutenza application as per above. Patient tolerated well, discharged home with no reported untoward effects. Cleansing gel applied prior to discharge, patient given cleansing gel for home use if needed. Referral placed for vascular Ultrasound Venous Duplex Bilateral ordered All questions and concerns were answered. Patient will follow up in the office as planned for next Qutenza application. Orders: Orders US venous duplex LE BI Today I73.9 - Peripheral vascular disease, unspecified AMB Capsaicin Patch - Practice Supplied Today E11.42 - Type 2 diabetes mellitus with diabetic polyneuropathy Referrals Vascular Surgery Referral I73.9 - Peripheral vascular disease, unspecified Medications: New capsaicin-skin cleanser 8 % 4 ea topical ONCE 1 ea 0RF E11.42 - Type 2 diabetes mellitus with diabetic polyneuropathy Coding Level of Care Code Est Pt Level 4 (05431) Diagnoses Peripheral vascular disease I73.9 Diabetic polyneuropathy associated with type 2 diabetes mellitus E11.42 Diabetes mellitus type: type 2 Diabetes mellitus complication detail: diabetic polyneuropathy Type 2 diabetes mellitus with diabetic polyneuropathy, without long-term current use of insulin 42 Diabetes mellitus type: type 2 Diabetes mellitus snf insulin use: without predatory animal exterminator use Diabetes mellitus complication status: with neurologic complications Diabetes mellitus complication detail: with polyneuropathy Lumbar facet arthropathy M47.816 Sacroiliac joint dysfunction of both sides M53.3
[2024-02-01 12:14] VITALS: BP 147/53; BP 149/72
== END 2024-02-01 12:02 | disposition home or self-care (01) ==
PROVIDERS: PCP Internal Medicine; Visit Provider Registered Nurse Emergency
DX: I73.9 Peripheral vascular disease, unspecified (principal); E11.42 Type 2 diabetes mellitus with diabetic polyneuropathy; M47.816 Spondylosis without myelopathy or radiculopathy, lumbar region; M53.3 Sacrococcygeal disorders, not elsewhere classified
CPT/HCPCS: 17999; 99214

== ENCOUNTER → 2024-02-01 10:47 | Outpatient (BNVA) | payer OTHER, SELFPAY | PROVIDERS: PCP Internal Medicine; Visit Provider Registered Nurse Emergency | DX: E11.42 Type 2 diabetes mellitus with diabetic polyneuropathy (principal); I73.9 Peripheral vascular disease, unspecified; M47.816 Spondylosis without myelopathy or radiculopathy, lumbar region; M53.3 Sacrococcygeal disorders, not elsewhere classified | CPT/HCPCS: 17999; 99212; J7336 ==

== ENCOUNTER 2024-04-08 11:13 | Outpatient (AMB) | payer OTHER, SELFPAY ==
--- NOTE | 2024-04-08 11:26 | MHC.OFFVIS ---
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 Patient states she has bilateral LE varicose veins that are painfulNOn. She states her legs and feet swell. She also gets painful cramping. Non smoker, patient is diabetic. Accompanied by: Self / Same As Patient Allergies No Known Allergies Allergy (Verified 04/08/24 11:29) HPI HPI MS SQL SERVER DEVELOPER/ [facility] PAIN MNGMNT REF/ PVD, unspecified: Details: Very pleasant 84-year-old female presents for evaluation regarding lower extremity pain. She has been seen by pain management in the past and has longstanding history of diabetes. She does have an element of neuropathy which has been treated by Lyrica. Of note she has been a diabetic for greater than 10 years with no history of smoking. She has persistent pain in the left lower extremity. She has had prior history of SI joint injections. In addition she has had epidural steroid injections that did not improve her back pain. She has these persistently aching lower extremities. She now presents for vascular evaluation. [facility] Medical History Chronic back pain Left knee DJD Social History Housing: Apartment Patient Tobacco Use Status: Never used Tobacco e-Cigarette/Vaping Use: Never Used Current occupational status: unemployed Current occupation: rt hand Cognitive needs: No Hearing needs: No Vision needs: Yes Review of Systems Const All systems reviewed & are unremarkable except as noted in HPI and below Reports no additional complaints ENT Reports Normal hearing present Card Denies chest pain, Denies chest pain at rest, Denies chest pain with activity and Denies pedal edema Resp Denies cough GI Denies abdominal pain Musc Denies abnormal gait, Denies muscle cramps and Denies radiating pain into limb Skin/Breast Denies skin ulcer and Denies wounds Neuro Reports Normal hearing present and Denies abnormal gait Psych Reports no additional complaints Physical Exam Const General: cooperative, healthy appearing and comfortable Orientation/consciousness: oriented to person, oriented to place and oriented to time HEENT Head: Yes normal to inspection Neck Neck: Yes normal visual inspection Carotids: no bruits Chest Chest palpation & inspection: normal inspection of the chest Resp Effort & Inspection: normal respiratory effort and able to speak in complete sentences Auscultation: clear to auscultation bilaterally, no crackles, no rales, no rhonchi and no wheezes Cardio Other: Palpable dorsalis pedis bilaterally Rate: regular rate Rhythm: regular rhythm Heart sounds: S1 normal heart sound present and S2 normal heart sound present Bruits: no carotid bruits Peripheral pulses: Peripheral pulses 2+ throughout GI Inspection: Yes normal to inspection Skin Wounds: no wounds Hair: normal Neuro General: oriented to person, oriented to place and oriented to time Cranial nerves: Yes CN's II-XII intact bilaterally and Yes Normal hearing present Cognition (Neuro): normal cognition Motor exam (neuro): 5/5 motor strength present throughout Extrem Other: venous exam: +1 edema with spider telangiectasias General: No clubbing, No cyanosis and Yes edema Psych Appearance: grossly normal Mental Status: mental status grossly normal Speech and movement: Normal speech and movement present Assessment & Plan Assessment & Plan (1) Varicose veins of right lower extremity with inflammation: Code(s): I83.11 - Varicose veins of right lower extremity with inflammation Category: Medical Plan: Unclear etiology lower extremity pain. I do suspect she does have a significant neurogenic component to this with her longstanding history of diabetes and neuropathy. In addition she does have palpable arterial pulses and it does not seem arterial in nature. I did take the liberty of ordering venous insufficiency testing to rule that out in addition she does have some swollen lower extremities. We did discuss routine conservative measures including compression elevation and exercise. She will follow up with us after venous insufficiency testing. Thank you for allowing us to assist in her care. If there are any questions or concerns please do not hesitate to contact us. Orders: Orders US venous duplex LE BI 1 Week I83.11 - Varicose veins of right lower extremity with inflammation Coding Level of Care Code New Pt Level 4 (82241) Diagnoses Varicose veins of right lower extremity with inflammation I83.11
== END 2024-04-08 11:55 | disposition home or self-care (01) ==
PROVIDERS: PCP Internal Medicine; Visit Provider Surgery Vascular Surgery
DX: I83.11 Varicose veins of right lower extremity with inflammation (principal)
CPT/HCPCS: 99204

== ENCOUNTER → 2024-04-08 11:13 | Outpatient (BNVA) | payer OTHER, SELFPAY | PROVIDERS: PCP Internal Medicine; Visit Provider Surgery Vascular Surgery | DX: I83.11 Varicose veins of right lower extremity with inflammation (principal) | CPT/HCPCS: 99202 ==

== ENCOUNTER 2024-08-14 08:41 | Outpatient (REF) | payer OTHER, SELFPAY ==
[2024-08-14 16:50] LABS: Estimated Glomerular Filt Rate > 60
[2024-08-14 17:02] LABS: Vitamin D 25-OH Total 62.9 ng/mL (>30)
--- OUTSIDE RECORDS SUMMARY | 2024-08-20 02:18 | XMS_ITS | Continuity of Care Document ---
Author Organization [facility] Address [address] [facility] [address] [place] [address] Phone Care Team Providers Care Credit Assistant Name Role Phone Unavailable Unavailable Unavailable Procedures Procedure Date Offic Cons New/estab Mod-hi 60 05 Advance Directives Directive Yes / No Effective Date File Name No Information Encounters Encounter Description Practice Location Reason(s) For Visit Diagnoses Date Provider Providers Copied on Encounter Offic Cons New/estab Mod-hi 60 [facility], [address] [facility] [address] [place], [place], [id number], [place] tel:[phone] [facility] No Information No Information Family History Family Member Type Diagnosis Age At Onset No Information Payers Payer name Insurance type Covered libertarian ID Authoriza melissa(s) [employer] Medicare Advantage Plans [id number] Social History Type Description Quantity Date [...]
== END 2024-08-14 08:42 | disposition home or self-care (01) ==
LOC: HO.HMGCLDS 08:41
PROVIDERS: PCP Internal Medicine; Visit Provider Internal Medicine Rheumatology
DX: M81.0 Age-related osteoporosis without current pathological fracture (principal); M17.0 Bilateral primary osteoarthritis of knee
CPT/HCPCS: 20610; 36415; 82040; 82306; 82310; 82565; 99212; J2003; J3300

== ENCOUNTER 2024-08-14 08:41 | Outpatient (AMB) | payer OTHER, SELFPAY ==
[2024-08-14 08:56] VITALS: BP 120/68; PULSE 74; O2SAT 96; BMI 34.9
--- NOTE | 2024-08-14 08:56 | A.OFFVIS_ITS ---
Vital Signs 08/14/24 08:56 Height 5 ft 3 in Weight 196 lb 13.965 oz BMI 34.9 BP 120/68 Blood Pressure Location Lt brachial Position Sitting Pulse 74 Pulse Source Pulse Oximeter Pulse Oximetry (%) 96 Oxygen Delivery Method Room Air Intake Visit Reasons: NEEDS PROLIA/cm apt Intake Note: Patient is here for her Prolia injection today. Patient is requesting to stop her Sending Tylenol with arthritis, because she barely uses it, and they keep sending her more and more, she only takes it as needed. She would like refill of Calcium Citrate. Chain Link Fence Installer Required: Yes Chain Link Fence Installer Name: [id number] Molly Allergies No Known Allergies Allergy (Verified 08/14/24 08:59) HPI HPI NEEDS PROLIA/cm apt: Details: Patient is seeing me in follow-up for the 1st time at [facility]. [facility]. Patient last had Prolia in October. She is overdue. She continues to have pain in her knees which limits her mobility. She uses walker. She is planning to move to [place] permanently and is leaving on Sunday. [facility] Medical History Chronic back pain Left knee DJD Social History Housing: Apartment Patient Tobacco Use Status: Never used Tobacco e-Cigarette/Vaping Use: Never Used Current occupational status: unemployed Current occupation: rt hand Cognitive needs: No Hearing needs: No Vision needs: Yes Review of Systems Const All systems reviewed & are unremarkable except as noted in HPI and below Physical Exam Vital Signs: Last Vital Signs Pulse 74 08/14/24 08:56 BP 120/68 08/14/24 08:56 Pulse Ox 96 08/14/24 08:56 Oxygen Delivery Method Room Air 08/14/24 08:56 BMI result Body Mass Index 34.9 Const Other: General: Comfortable Skin: No lesions seen MSK: Tender to palpate bilateral knees without effusion noted. Limited knee flexion. Office Procedures AMB Joint Injection/Aspiration Joint Injection/Aspiration Primary Site: left knee Prep: site was prepped using aseptic technique Injected: 40 mg of, Kenalog, with 1 mL of and 1% plain lidocaine Procedure: The patient tolerated the procedure well Coding 88389 - Large joint Additional procedure code (CPT) needed (Modifier needed for bilateral procedure) AMB Joint Injection/Aspiration Joint Injection/Aspiration Primary Site: right knee Prep: site was prepped using sterile technique Injected: 40 mg of, Kenalog, with 1 mL of and 1% plain lidocaine Procedure: The patient tolerated the procedure well Coding 83000 - Large joint Additional procedure code (CPT) needed (modifier needed for bilateral procedures) Office Meds Kenalog 40 mg/mL suspension for injection Performing Provider: Andrea Ocampo MD Performing Location: [facility] [facility] Administered by: Andrea Ocampo MD on 08/14/24 10:00 Dose Route Admin Location Dispensed Lot Number Expiration Date [facility] Optical Instrument Assembly Supervisor 40 mg intra-articular 1 mL AP [id number] [employer] lidocaine (PF) 10 mg/mL (1 %) injection solution Performing Provider: Andrea Ocampo MD Performing Location: [facility] [place] Administered by: Andrea Ocampo MD on 08/14/24 10:00 Dose Route Admin Location Dispensed Lot Number Expiration Date [facility] Optical Instrument Assembly Supervisor 10 mg Infiltration 2 mL [id number] [facility] Kenalog 40 mg/mL suspension for injection Performing Provider: Andrea Ocampo MD Performing Location: [facility] [place] Administered by: Andrea Ocampo MD on 08/14/24 09:58 Dose Route Admin Location Dispensed Lot Number Expiration Date [facility] Optical Instrument Assembly Supervisor 40 mg intra-articular 1 mL AP [id number] [employer] lidocaine (PF) 10 mg/mL (1 %) injection solution Performing Provider: Andrea Ocampo MD Performing Location: [facility] [place] Administered by: Andrea Ocampo MD on 08/14/24 09:58 Dose Route Admin Location Dispensed Lot Number Expiration Date [facility] Optical Instrument Assembly Supervisor 10 mg Infiltration 2 mL [id number] [facility] Assessment & Plan Assessment & Plan (1) Osteoporosis: Comment: On Prolia. She is overdue for Prolia. Code(s): M81.0 - Age-related osteoporosis without current pathological fracture Category: Medical Qualifiers: Osteoporosis type: age-related Presence of current pathological fracture: unspecified Qualified Code(s): M81.0 - Age-related osteoporosis without current pathological fracture Plan: We will process GUERO Calderón with plan for her to have it administered at [facility] with nurse visit prior to next Sunday Labs have been ordered prior to Stephane. I have asked patient to contact [facility] to obtain her records for her physicians in [place]. She will need to obtain all her bone densities and last few clinic notes. She will follow-up with her care team in [place]. (2) Osteoarthritis of knees, bilateral: Comment: Pain is uncontrolled. Code(s): M17.0 - Bilateral primary osteoarthritis of knee Category: Medical Qualifiers: Osteoarthritis type: primary Qualified Code(s): M17.0 - Bilateral primary osteoarthritis of knee Plan: Bilateral knee cortisone injections given this visit She will follow-up with her care team in [place] Orders: Orders Creatinine Today M81.0 - Age-related osteoporosis without current pathological fracture AMB Joint Injection/Aspiration Today M17.0 - Bilateral primary osteoarthritis of knee Calcium Today M81.0 - Age-related osteoporosis without current pathological fracture Albumin Level Today M81.0 - Age-related osteoporosis without current pathological fracture Vitamin D 25-OH Total Today M81.0 - Age-related osteoporosis without current pathological fracture AMB Joint Injection/Aspiration Today M17.0 - Bilateral primary osteoarthritis of knee Coding Level of Care Code Est Pt Level 3 (32410) Complex EM visit Add On G2211 Diagnoses Age related osteoporosis, unspecified pathological fracture presence M81.0 Osteoporosis type: age-related Presence of current pathological fracture: unspecified Primary osteoarthritis of both knees M17.0 Osteoarthritis type: primary CPT Codes Coding - 86144 Large joint: 72792 - Large joint ([id number]) Coding - 33163 Large joint: 80453 - Large joint ([id number])
--- OUTSIDE RECORDS SUMMARY | 2024-08-20 00:27 | XMS_ITS | Continuity of Care Document ---
Author Organization [facility] Address [address] [place] [address] Phone Care Team Providers Care Diamond Powder Mixer Name Role Phone Unavailable Unavailable Unavailable Procedures Procedure Date Offic Cons New/estab Mod-hi 60 05 Advance Directives Directive Yes / No Effective Date File Name No Information Encounters Encounter Description Practice Location Reason(s) For Visit Diagnoses Date Provider Providers Copied on Encounter Offic Cons New/estab Mod-hi 60 [facility], [address], [place], [place], [id number], [place] tel:[phone] [facility] [employer] No Information No Information Family History Family Member Type Diagnosis Age At Onset No Information Payers Payer name Insurance type Covered constitution party ID Authoriza melissa(s) [employer] Medicare Advantage Plans [id number] Social History Type Description Quantity Date Captured Comments Sex Female Smoking Status No Information Chief Complaint And Reason For Visit No Information Reason For Referral Reason For Referral No Information History Of Present Illness Encounter Date Complaint History Of Prese nt Illness No Information Functional Status Date Functional Assessmen t No Information Instructions Date Instruction Additional Infor mation No Information Assessments Type Assessment Date No Information Patient Care Teams Name Effective Dates (start - stop) Status Members No Information
== END 2024-08-14 09:58 | disposition home or self-care (01) ==
PROVIDERS: PCP Internal Medicine; Visit Provider Internal Medicine Rheumatology
DX: M81.0 Age-related osteoporosis without current pathological fracture (principal); M17.0 Bilateral primary osteoarthritis of knee
CPT/HCPCS: 20610; 99213

== ENCOUNTER 2024-08-19 14:07 | Outpatient (AMB) | payer OTHER, SELFPAY ==
--- NOTE | 2024-08-19 14:38 | AM.OFFVISNUR ---
Intake Visit Reasons: osteoporosis/prolia inj Allergies No Known Allergies Allergy (Verified 08/14/24 08:59) Office Meds Prolia 60 mg/mL subcutaneous syringe Performing Provider: William Coombs MD Performing Location: [facility] [place] [facility] Administered by: Claudia Gong RN on 08/19/24 14:40 Dose Route Admin Location Dispensed Lot Number Expiration Date NDC Signing Agent 60 mg subcut left upper extremity 1 mL [id number] 03/09/27 11304-232-56 [employer] Comments: Visit interpreted by Rosie Armendariz LMT. Pt signed consent form. Pt tolerated injection well. Pt denies any problems with injection in the past. Assessment & Plan Assessment & Plan Orders: Orders AMB Denosumab Injection Practice Supplied Today M81.0 - Age-related osteoporosis without current pathological fracture Medications: New Prolia (denosumab) 60 mg subcut ONCE 1 mL 0RF NS M81.0 - Age-related osteoporosis without current pathological fracture
--- OUTSIDE RECORDS SUMMARY | 2024-08-20 22:00 | XMS_ITS | Continuity of Care Document ---
Author Organization [facility] Address [address] [address] [facility] [address] [place] [address] Phone Care Team Providers Care Lead Miner Blasting Name Role Phone Unavailable Unavailable Unavailable Procedures Procedure Date Offic Cons New/estab Mod-hi 60 05 Advance Directives Directive Yes / No Effective Date File Name No Information Encounters Encounter Description Practice Location Reason(s) For Visit Diagnoses Date Provider Providers Copied on Encounter Offic Cons New/estab Mod-hi 60 [facility], [address] [address] [facility] [address] [place], [place], [id number], [place] tel:[phone] [facility] No Information No Information Family History Family Member Type Diagnosis Age At Onset No Information Payers Payer name Insurance type Covered green party ID Authoriza melissa(s) [employer] Medicare Advantage Plans [id number] Social History Type Description Quantity Date [...]
== END 2024-08-19 14:44 | disposition home or self-care (01) ==
PROVIDERS: PCP Internal Medicine; Visit Provider Student in an Organized Health Care Education/Training Program
DX: M81.0 Age-related osteoporosis without current pathological fracture (principal)

== ENCOUNTER → 2024-08-19 14:07 | Outpatient (BNVA) | payer OTHER, SELFPAY | PROVIDERS: PCP Internal Medicine; Visit Provider Internal Medicine Rheumatology | DX: M81.0 Age-related osteoporosis without current pathological fracture (principal) | CPT/HCPCS: 96372; J0897 ==